=== PATIENT | female | born 1950 ===

== ENCOUNTER 2016-10-14 11:04 | Observation (INO) | payer OTHER ==
--- NOTE | 2016-10-14 12:37 | C.PDOC ---
History Of Present Illness CP SINCE TODAY. L SIDED LOCALIZED. DENIES OTHER ASSOC SX EXAM NEG [id number] NEG NUCLEAR STRESS AND ECHO Chief Complaint (Nursing): Chest Pain History Per: Patient History/Exam Limitations: no limitations Onset/Duration Of Symptoms: Hrs Current Symptoms Are (Timing): Still Present Quality: "Pain" Associated Symptoms: denies: Dyspnea, Diaphoresis Exacerbating Factors: None Recent travel outside of the [place]: No Past Medical History Reviewed: Historical Data, Nursing Documentation, Vital Signs Vital Signs: Last Vital Signs Temp 98.3 F 10/14/16 11:14 Pulse 64 10/14/16 13:21 Resp 15 10/14/16 13:21 BP 149/73 10/14/16 13:21 Pulse Ox 99 10/14/16 13:31 - Medical History PMH: Diabetes, Gall Bladder Disease, HTN, Hypercholesterolemia, Hyperthyroidism , Hypothyroidism, Migraine, Osteoporosis (OSTEOPENIA) Surgical History: Cholecystectomy - [facility] Procedures DX ULTRASOUND-HEAD/NECK (11/27/12) PERCUTAN NEEDLE BX OF THYROID GLAND (11/27/12) Family History: States: Unknown Family Hx - Social History Hx Tobacco Use: No Hx Alcohol Use: No Hx Substance Use: No - Immunization History Hx Tetanus Toxoid Vaccination: No Hx Influenza Vaccination: No Hx Pneumococcal Vaccination: No Review Of Systems Except As Marked, All Systems Reviewed And Found Negative. Constitutional: Negative for: Fever, Chills Cardiovascular: Positive for: Chest Pain. Negative for: Palpitations Respiratory: Negative for: Cough, Shortness of Breath, Wheezing Gastrointestinal: Negative for: Nausea, Vomiting, Abdominal Pain Skin: Negative for: Rash Neurological: Negative for: Headache, Dizziness Physical Exam - Physical Exam Appears: Non-toxic, No Acute Distress Skin: Normal Color, Warm, Dry Head: Atraumatic, Normacephalic Oral Mucosa: Moist Chest: Symmetrical Cardiovascular: Rhythm Regular Respiratory: Normal Breath Sounds, No Rales, No Rhonchi, No Wheezing Gastrointestinal/Abdominal: Soft, No Tenderness, No Guarding, No Rebound Back: Normal Inspection Extremity: Normal ROM, Capillary Refill (< 2 sec.) Neurological/Psych: Oriented x3, Normal Speech, Normal Cognition ED Course And Treatment - Laboratory Results Result Diagrams: 10/14/16 13:35 10/14/16 13:35 ECG: Interpreted By Me ECG Rhythm: Sinus Rhythm ECG Interpretation: Normal Rate From EC O2 Sat by Pulse Oximetry: 99 (RA) Pulse Ox Interpretation: Normal - Radiology CXR: Interpreted by Me CXR Interpretation: Yes: No Acute Disease Progress - Re-Evaluation Re-evaluation Note: 10/14/16 13:31 PT REFUSING NITROPASTE 10/14/16 14:44 D/W DR CLEANING WILL ADMIT - Data Reviewed Data Reviewed: Lab, Diagnostic imaging, EKG, Old records Disposition Counseled Patient/Family Regarding: Studies Performed, Diagnosis - Disposition Disposition: HOSPITALIZED Disposition Time: 14:45 Condition: STABLE Forms: [employer] [place] ([place]) - POA Present On Arrival: None - Clinical Impression Clinical Impression: Chest pain - Scribe Statement The provider has reviewed the documentation as recorded by the Scribe SM All medical record entries made by the Scribe were at my direction and personally dictated by me. I have reviewed the chart and agree that the record accurately reflects my personal performance of the history, physical exam, medical decision making, and the department course for this patient. I have also personally directed, reviewed, and agree with the discharge instructions and disposition. Decision To Admit - Pt Status Changed To: Hospital Disposition Of: Observation - . Bed Request Type: Telemetry Admitting Physician: Ernie Cleaning Patient Diagnosis: Chest pain
[2016-10-14] MEDS ORDERED: Nitroglycerin 2% Ointment Foilpak UD TOP STA (12:38)
[2016-10-14] MEDS ORDERED: Aspirin 325 mg EC Tablets PO STA (12:38)
[2016-10-14] MEDS ORDERED: Aspirin 325 mg EC Tablets PO ONE (13:10)
[2016-10-14] MEDS ORDERED: Nitroglycerin 2% Ointment Foilpak UD TOP ONE (13:11)
--- NOTE | 2016-10-14 13:25 | RAD ---
HISTORY: chest pain COMPARISON: No prior. TECHNIQUE: Chest PA and lateral FINDINGS: LUNGS: No acute consolidation. The interstitial markings are slightly increased and coarsened with a few scattered peribronchial cuffing changes. Rule out sequela of reactive/inflammatory airway disease or viral illness. PLEURA: No significant pleural effusion identified. No pneumothorax apparent. CARDIOVASCULAR: Normal. OSSEOUS STRUCTURES: Minor multilevel degenerative spondylosis of the thoracic spine with very subtle dextroscoliosis centered at the thoracolumbar junction. . Minor degenerative changes both acromioclavicular joints. VISUALIZED UPPER ABDOMEN: Metallic clips right upper quadrant gliotic consistent prior cholecystectomy. OTHER FINDINGS: None. IMPRESSION: No acute consolidation. The interstitial markings are slightly increased and coarsened with a few scattered peribronchial cuffing changes. Rule out sequela of reactive/inflammatory airway disease or viral illness.
[2016-10-14 13:47] LABS: BASO # 0.1 K/uL (0.0-0.2); BASO % 0.9 % (0.0-2.0); EOS # 0.2 K/uL (0.0-0.7); EOS % 2.4 % (0.0-4.0); HEMATOCRIT 41.1 % (34.0-47.0); LYMPH % 37.1 % (20.0-40.0); MEAN CELL VOLUME 90.5 fL (81.0-99.0); MEAN CORPUSCULAR HEMOGLOBIN 30.2 pg (27.0-31.0); MEAN CORPUSCULAR HGB CONC 33.4 g/dL (33.0-37.0); MEAN PLATELET VOLUME 7.9 fL (7.2-11.7); MONO # 0.6 K/uL (0.0-0.8); MONO % 7.9 % (0.0-10.0); NRBC % 0.1 % (0.0-2.0)
[2016-10-14 13:51] LABS: CHLORIDE 102 mmol/L (98-107); POTASSIUM 4.4 mmol/L (3.6-5.2); SODIUM 142 mmol/L (132-148)
[2016-10-14 13:54] LABS: BLOOD UREA NITROGEN 8 mg/dL (7-17); CARBON DIOXIDE 26 mmol/L (22-30); GFR AFRICAN-AMERICAN > 60
[2016-10-14 13:55] LABS: CALCIUM 10.1 mg/dl (8.6-10.4); GLUCOSE,RANDOM 161 mg/dL (65-105)
--- NOTE | 2016-10-14 18:24 | CP.PCM.HP ---
<Royal Platt - Last Filed: 10/14/16 18:50> History of Present Illness - History of Present Illness History of Present Illness: PGY-[address] Lopez HPI: Patient is a 66 y/o female with a PMH of Chronic sinusitis, DM, CVA, Hyperthyroidism and stable angina comes to the ED with a CC of Chest pain for 2 day duration. The pain started last night between the hours of 4pm and 7pm. The pain then ceased but returned this am. Nothing makes the pain better. Walking makes the pain worse. She describes the pain as pressure/a weight on her chest. It radiates to her back. She has had prior episodes of this kind of chest pain and admits to having a cardiac cath done without knowledge of previous stents but does have results of a normal stress test done 1 year ago. She denies fever , chills, nausea, vomiting, diarrhea, constipation, cough, diaphoresis, hemoptysis, visual changes, speech changes,. confusion, PHELAN, abdominal apin, leg pain, rash, changes in urinary habits, blood in urine. she admits to SOB on exertion and minimal SOB at rest, weakness, dizziness. Denies sick contacts or recent travel. PMH: Chronic sinusitis, DM, CVA (residual R. sided facial droop), Hyperthyroidism and stable angina PSH: Lap to open celia, tubal ligation FH: mom is healthy, dad from heart disease, 2 brothers with DM SH: no job, , lives with her , denies smoking, drinking or illegal drug use Meds: ASA, metformin, gliperide, methimazole, meclizine, eye drops. Allergies: none ROS: * Const: denies WL * HEENT: dry eyes, sinusitis, wears glasses * Lungs: "breathing problems" * Heart: Echo 14 years ago, "normal" cath 3 years ago, Normal stress test 1 year ago * GI: stomach churns when she eats * : none * Breast: none * MSK: no back pain, ambulates independently * Neuro: CVA 12 years ago, no seizures * Endo: hyperthyroid, DM * Psych: denies previous hospitlizations * Heme: denies easy bruising, hx of 3 unit transfusion during open celia, denies blood clots * Onc: no history of cancer Present on Admission - Present on Admission Any Indicators Present on Admission: No History of DVT/PE: No History of Uncontrolled Diabetes: No Urinary Catheter: No Decubitus Ulcer Present: No History Surgical Site Infection Following: None Review of Systems - Constitutional Constitutional: As Per HPI - EENT Eyes: As Per HPI Ears: As Per HPI Nose/Mouth/Throat: As Per HPI - Breasts Breasts: As Per HPI - Cardiovascular Cardiovascular: As Per HPI - Respiratory Respiratory: As Per HPI - Gastrointestinal Gastrointestinal: As Per HPI - Genitourinary Genitourinary: As Per HPI - Reproductive: Female Reproductive:Female: As Per HPI - Menstruation Menstruation: As Per HPI - Musculoskeletal Musculoskeletal: As Per HPI - Integumentary Integumentary: As Per HPI - Neurological Neurological: As Per HPI - Psychiatric Psychiatric: As Per HPI - Endocrine Endocrine: As Per HPI - Hematologic/Lymphatic Hematologic: As Per HPI Past Patient History - Infectious Disease Hx of Infectious Diseases: None - Past Medical History & Family History Past Medical History?: Yes - Past Social History Smoking Status: Never Smoked - CARDIAC Hx Hypercholesterolemia: Yes Hx Hypertension: Yes - NEUROLOGICAL Hx Migraine: Yes - HEENT Hx HEENT Problems: Yes Other/Comment: PTYRGIUM LEFT EYE; SEASONAL ALLERGIES. - ENDOCRINE/METABOLIC Hx Hyperthyroidism: Yes Hx Hypothyroidism: Yes - HEMATOLOGICAL/ONCOLOGICAL Hx Blood Disorders: Yes Other/Comment: VITAMIN D DEFICIENCY - MUSCULOSKELETAL/RHEUMATOLOGICAL Hx Osteoporosis: Yes (OSTEOPENIA) - GASTROINTESTINAL Hx Gall Bladder Disease: Yes - PSYCHIATRIC Hx Substance Use: No - SURGICAL HISTORY Hx Cholecystectomy: Yes - ANESTHESIA Hx Anesthesia: Yes Hx Anesthesia Reactions: No Hx Malignant Hyperthermia: No Meds Allergies/Adverse Reactions: Allergies Allergy/AdvReac Type Severity Reaction Status Date / Time No Known Allergies Allergy Verified 10/14/16 11:18 Physical Exam - Constitutional Appears: Well, Non-toxic - Head Exam Head Exam: ATRAUMATIC, NORMAL INSPECTION, NORMOCEPHALIC - Eye Exam Eye Exam: EOMI - ENT Exam ENT Exam: Mucous Membranes Moist Additional comments: r. sided facial droop - Respiratory Exam Respiratory Exam: Clear to Auscultation Bilateral, NORMAL BREATHING PATTERN. absent: Rales, Rhonchi, Wheezes, Stridor - Cardiovascular Exam Cardiovascular Exam: REGULAR RHYTHM, RRR. absent: Tachycardia - GI/Abdominal Exam GI & Abdominal Exam: Normal Bowel Sounds, Soft. absent: Distended, Firm, Tenderness - Extremities Exam Extremities exam: Positive for: normal capillary refill, pedal pulses present. Negative for: calf tenderness, joint swelling, pedal edema, tenderness - Back Exam Back exam: paraspinal tenderness - Neurological Exam Neurological exam: Alert, CN II-XII Intact, Oriented x3 - Expanded Neurological Exam Expanded Sensory exam: Lower Extremity Light Touch: Normal, Upper Extremity Light Touch: Normal Neuro motor strength exam: Left Upper Extremity: 5, Right Upper Extremity: 5, Left Lower Extremity: 5, Right Lower Extremity: 5 - Psychiatric Exam Psychiatric exam: Normal Affect, Normal Mood - Skin Skin Exam: Dry, Intact, Normal Color, Warm Results - Vital Signs Recent Vital Signs: Last Vital Signs Temp 98.0 F 10/14/16 16:04 Pulse 72 10/14/16 16:04 Resp 17 10/14/16 16:04 BP 148/77 10/14/16 16:04 Pulse Ox 98 10/14/16 16:04 - Labs Result Diagrams: 10/14/16 13:35 10/14/16 13:35 Assessment & Plan - Assessment and Plan (Free Text) Assessment: Chest Pain * Stable angina Vs Costochondritis * BAL/EKG x2 - F/U * Cards ([facility]) - F/U reccs * ASA 81mg PO QD * Zestril 2.5mg PO QD * Metoprolol 25mg PO Q6 * Crestor 10mg PO HS Hyperthyroidism * Methimazole 5mg PO BID * TSH - F/U DM * Glimepiride 2mg PO BID * Hgb A1c - F/U * Accuchecks PPX * Pepcid 20mg PO BID * Heparin 5000 SC Q12 * Ambulate Decision To Admit - Pt Status Changed To: Hospital Disposition Of: Observation - . Bed Request Type: Telemetry <Matt Lopez - Last Filed: 11/14/16 15:42> Results - Vital Signs Recent Vital Signs: Last Vital Signs Temp 98.1 F 10/15/16 08:30 Pulse 70 10/15/16 10:30 Resp 20 10/15/16 08:30 BP 119/72 10/15/16 12:39 Pulse Ox 95 10/15/16 08:30 - Labs Result Diagrams: 10/15/16 07:46 10/15/16 07:46 Attending/Attestation - Attestation I have personally seen and examined this patient.: Yes I have fully participated in the care of the patient.: Yes I have reviewed all pertinent clinical information: Yes Notes (Text): Chest Pain Stable angina Possible Costochondritis Hyperthyroidism DM
--- NOTE | 2016-10-14 19:32 | CP.PCM.CON ---
History of Present Illness - History of Present Illness History of Present Illness: Consultation for evaluation of chest pain HPI : 66-year-old female with past medical history significant for diabetes mellitus hyperthyroidism chronic sinusitis recurrent chest wall pain for which she had had multiple hospitalizations over the course of last few years patient had undergone serial nuclear stress test back in 2015 and 2016 which showed no evidence of ischemia he describes the pain as sharp stabbing along the left side radiating to her left shoulder blade. Patient had a cardiac catheterization a few years ago. Denies having any shortness of breath palpitations dizziness syncope or presyncope. As stated above significant past medical history significant for chronic sinusitis diabetes mellitus CVA with mild right facial droop hyperthyroidism Past surgical history significant for tubal ligation open cholecystectomy. Family history significant for dad dying from heart attack 2 brothers diabetic. Social history lives with her asked me she was smoking alcohol or illicit drug use. Medications: Patient is on aspirin Metformin glipizide methimazole meclizine and eyedrops. Review of Systems - Review of Systems All systems: reviewed and no additional remarkable complaints except - Constitutional Constitutional: As Per HPI, Fatigue, Malaise. absent: Anorexia, Chills, Daytime Sleepiness, Excessive Sweating, Fever, Frequent Falls, Headache, Increased Appetite, Lethargy, Night Sweats, Snoring, Sleep Apnea, Weight Gain, Weight Loss, Weakness, Other - EENT Eyes: As Per HPI. absent: Blind Spots, Blurred Vision, Change in Vision, Decreased Night Vision, Diplopia, Discharge, Dry Eye, Exophthalmos, Floaters, Irritation, Itchy Eyes, Loss of Peripheral Vision, Pain, Photophobia, Requires Corrective Lenses, Sees Flashes, Spots in Vision, Tunnel Vision, Other Visual Disturbances, Loss of Vision, Other Ears: As Per HPI. absent: Decreased Hearing, Ear Discharge, Ear Pain, Tinnitus , Abnormal Hearing, Disequilibrium, Dizziness, Other Nose/Mouth/Throat: As Per HPI, Nasal Congestion, Nose Pain. absent: Epistaxis, Nasal Discharge, Nasal Obstruction, Nasal Trauma, Post Nasal Drip, Sinus Pain, Sinus Pressure, Bleeding Gums, Change in Voice, Dental Pain, Dry Mouth, Dysphagia, Halitosis, Hoarsness, Lip Swelling, Mouth Lesions, Mouth Pain, Odynophagia, Sore Throat, Throat Swelling, Tongue Swelling, Facial Pain, Neck Pain, Neck Mass, Other - Breasts Breasts: As Per HPI - Cardiovascular Cardiovascular: As Per HPI, Chest Pain, Dyspnea. absent: Acrocyanosis, Chest Pain at Rest, Chest Pain with Activity, Claudication, Diaphoresis, Dyspnea on Exertion, Edema, Irregular Heart Rhythm, Pain Radiating to Arm/Neck/Jaw, Leg Edema, Leg Ulcers, Lightheadedness, Orthopnea, Palpitations, Paroxysmal Nocturnal Dyspnea, Pedal Edema, Radiating Pain, Rapid Heart Rate, Slow Heart Rate, Syncope, Other - Respiratory Respiratory: As Per HPI. absent: Cough, Dyspnea, Hemoptysis, Dyspnea on Exertion, Wheezing, Snoring, Stridor, Pain on Inspiration, Chest Congestion, Excessive Mucous Production, Change in Mucous Color, Pain with Coughing, Other - Gastrointestinal Gastrointestinal: As Per HPI. absent: Abdominal Pain, Belching, Bloating, Change in Bowel Habits, Change in Stool Character, Coffee Ground Emesis, Constipation, Cramping, Diarrhea, Dyspepsia, Dysphagia, Early Satiety, Excessive Flatus, Fecal Incontinence, Heartburn, Hematemesis, Hematochezia, Loose Stools, Melena, Nausea, Odynophagia, Temesmus, Vomiting, Other - Genitourinary Genitourinary: As Per HPI - Musculoskeletal Musculoskeletal: As Per HPI - Integumentary Integumentary: As Per HPI. absent: Acne, Alopecia, Bleeding Lesions, Change in Hair, Change in Nails, Change in Pigmentation, Changing Lesions, Dry Skin, Erythema, Furuncle, Hirsutism, Lesions, New Lesions, Non-Healing Lesions, Photosensitivity, Pruritus, Rash, Skin Pain, Skin Ulcer, Sores, Striae, Swelling , Unusual Bruising, Wounds, Jaundice, Other - Neurological Neurological: As Per HPI. absent: Abnormal Gait, Abnormal Hearing, Abnormal Movements, Abnormal Speech, Behavioral Changes, Burning Sensations, Confusion, Convulsions, Disequilibrium, Dizziness, Numbness, Focal Weakness, Frequent Falls , Headaches, Lack of Coordination, Loss of Vision, Memory Loss, Paresthesias, Radicular Pain, Restless Legs, Sensory Deficit, Syncope, Tingling, Tremor, Vertigo, Weakness, Other Visual Disturbances, Other - Psychiatric Psychiatric: As Per HPI. absent: Abnormal Sleep Pattern, Anhedonia, Anxiety, Auditory Hallucinations, Behavioral Changes, Change in Appetite, Change in Libido, Confusion, Depression, Difficulty Concentrating, Hallucinations, Homicidal Ideation, Hopelessness, Irritability, Memory Loss, Mood Swings, Panic Attacks, Paranoia, Suicidal Ideation, Visual Hallucinations, Tactile Hallucinations, Other - Endocrine Endocrine: As Per HPI, Cold Intolorance. absent: Change in Body Appearance, Change in Libido, Deepening of Voice, Excessive Sweating, Fatigue, Flushing, Heat Intolorance, Increase in Ring/Shoe/Hat Size, Palpitations, Polydipsia, Polyphagia, Polyuria, Other - Hematologic/Lymphatic Hematologic: As Per HPI. absent: Easy Bleeding, Easy Bruising, Lymphadenopathy , Other Past Patient History - Infectious Disease Hx of Infectious Diseases: None - Past Medical History & Family History Past Medical History?: Yes - Past Social History Smoking Status: Never Smoked - CARDIAC Hx Hypercholesterolemia: Yes Hx Hypertension: Yes - NEUROLOGICAL Hx Migraine: Yes - HEENT Hx HEENT Problems: Yes Other/Comment: PTYRGIUM LEFT EYE; SEASONAL ALLERGIES. - ENDOCRINE/METABOLIC Hx Hyperthyroidism: Yes Hx Hypothyroidism: Yes - HEMATOLOGICAL/ONCOLOGICAL Hx Blood Disorders: Yes Other/Comment: VITAMIN D DEFICIENCY - MUSCULOSKELETAL/RHEUMATOLOGICAL Hx Osteoporosis: Yes (OSTEOPENIA) - GASTROINTESTINAL Hx Gall Bladder Disease: Yes - PSYCHIATRIC Hx Substance Use: No - SURGICAL HISTORY Hx Cholecystectomy: Yes - ANESTHESIA Hx Anesthesia: Yes Hx Anesthesia Reactions: No Hx Malignant Hyperthermia: No Meds Allergies/Adverse Reactions: Allergies Allergy/AdvReac Type Severity Reaction Status Date / Time No Known Allergies Allergy Verified 10/14/16 11:18 - Medications Medications: Current Medications Acetaminophen (Tylenol 325mg Tab) 650 mg PO Q6 PRN PRN Reason: Fever >100.4 F Aspirin (Aspirin Chewable) 81 mg PO DAILY [facility] Famotidine (Pepcid) 20 mg PO BID [facility] Last Admin: 10/14/16 18:57 Dose: 20 mg Glimepiride (Amaryl) 2 mg PO BID [facility] Heparin Sodium (Porcine) (Heparin) 5,000 units SC Q12 [facility] Lisinopril (Zestril) 2.5 mg PO DAILY [facility] Last Admin: 10/14/16 19:01 Dose: 2.5 mg Methimazole (Tapazole) 5 mg PO BID [facility] Metoprolol Tartrate (Lopressor) 25 mg PO Q6 [facility] Last Admin: 10/14/16 18:57 Dose: 25 mg Ondansetron HCl (Zofran Inj) 4 mg IVP Q6 PRN PRN Reason: Nausea/Vomiting Rosuvastatin Calcium (Crestor) 10 mg PO HS [facility] Physical Exam - Constitutional Appears: Well - Head Exam Head Exam: ATRAUMATIC, NORMAL INSPECTION, NORMOCEPHALIC - Eye Exam Eye Exam: EOMI, Normal appearance, PERRL Pupil Exam: NORMAL ACCOMODATION, PERRL - ENT Exam ENT Exam: Mucous Membranes Moist, Normal Exam - Neck Exam Neck exam: Positive for: Normal Inspection - Respiratory Exam Respiratory Exam: Clear to Auscultation Bilateral, NORMAL BREATHING PATTERN - Cardiovascular Exam Cardiovascular Exam: REGULAR RHYTHM, RRR, +S1, +S2, Systolic Murmur - GI/Abdominal Exam GI & Abdominal Exam: Normal Bowel Sounds, Soft. absent: Tenderness - Extremities Exam Extremities exam: Positive for: normal inspection - Back Exam Back exam: NORMAL INSPECTION - Neurological Exam Neurological exam: Alert, CN II-XII Intact, Oriented x3, Reflexes Normal - Psychiatric Exam Psychiatric exam: Normal Affect, Normal Mood - Skin Skin Exam: Dry, Intact, Normal Color, Warm Results - Vital Signs Recent Vital Signs: Last Vital Signs Temp 99.0 F 10/14/16 18:42 Pulse 75 10/14/16 18:42 Resp 15 10/14/16 18:42 BP 136/69 10/14/16 18:57 Pulse Ox 97 10/14/16 18:42 - Labs Result Diagrams: 10/14/16 13:35 10/14/16 13:35 - EKG Data EKG Interpreted by: Myself EKG shows normal: Sinus rhythm, [place], Intervals, QRS complexes, ST-T waves Rate: Normal Assessment & Plan (1) Chest pain Assessment and Plan: Etiology of chest pain most likely secondary to costochondritis chest wall tenderness reproducible on palpation along the left costochondral junction. Check ESR CRP. Rule out with serial enzymes. If ESR and CRP elevated may consider treating her with colchicine. Once ACS rule out she can be discharged home with no further cardiac workup needed as she had previously undergone serial nuclear stress test with showing no evidence of ischemia. Status: Acute (2) Costochondritis Assessment and Plan: etiology of chest pain check ESR / cRP NSAIDS +/- colchicine Status: Acute (3) Diabetes mellitus Assessment and Plan: per primary team Status: Chronic (4) Hyperthyroidism Assessment and Plan: per primary team Status: Chronic
[2016-10-15 07:57] LABS: BASO # 0.2 K/uL (0.0-0.2); BASO % 2.3 % (0.0-2.0); EOS # 0.2 K/uL (0.0-0.7); EOS % 2.9 % (0.0-4.0); HEMATOCRIT 40.5 % (34.0-47.0); LYMPH # 2.6 K/uL (1.0-4.3); LYMPH % 38.5 % (20.0-40.0); MEAN CELL VOLUME 90.4 fL (81.0-99.0); MEAN CORPUSCULAR HEMOGLOBIN 30.4 pg (27.0-31.0); MEAN CORPUSCULAR HGB CONC 33.6 g/dL (33.0-37.0); MEAN PLATELET VOLUME 8.1 fL (7.2-11.7); MONO # 0.5 K/uL (0.0-0.8); MONO % 7.2 % (0.0-10.0); NRBC % 0.1 % (0.0-2.0); RED CELL DISTRIBUTION WIDTH 14.2 % (11.5-14.5); WHITE BLOOD COUNT 6.7 K/uL (4.8-10.8)
[2016-10-15 08:11] LABS: CHLORIDE 102 mmol/L (98-107); POTASSIUM 4.1 mmol/L (3.6-5.2); SODIUM 138 mmol/L (132-148)
[2016-10-15 08:13] LABS: AST/SGOT 29 U/L (14-36); BILIRUBIN,TOTAL 0.7 mg/dL (0.2-1.3); CARBON DIOXIDE 25 mmol/L (22-30); CHOLESTEROL 255 mg/dL (0-199); GFR AFRICAN-AMERICAN > 60
[2016-10-15 08:14] LABS: ALB/GLOB RATIO 1.2 (1.0-2.1); ALKALINE PHOSPHATASE 86 U/L (38-126); ALT/SGPT 46 U/L (9-52); BLOOD UREA NITROGEN 9 mg/dL (7-17); CALCIUM 9.4 mg/dl (8.6-10.4); GLUCOSE,RANDOM 160 mg/dL (65-105); TOTAL PROTEIN 7.1 g/dL (6.3-8.3)
[2016-10-15 08:45] LABS: THYROID STIMULATING HORMONE 2.95 mIU/L (0.46-4.68)
[2016-10-15 09:52] VITALS: RESP 20; TEMP 98.1; O2SAT 95
[2016-10-15] MEDS ORDERED: methIMAzole 5 MG TAB PO SCH (10:00)
--- NOTE | 2016-10-15 11:43 | CP.PCM.PN ---
Subjective - Date & Time of Evaluation Date of Evaluation: 10/15/16 Time of Evaluation: 11:40 - Subjective Subjective: feels chest pain is less intense reproducible on palpation of chest wall TnI x 3 -ve Objective - Vital Signs/Intake and Output Vital Signs (last 24 hours): Temp Pulse Resp BP Pulse Ox 98.1 F 68 20 126/72 95 10/15/16 08:30 10/15/16 08:30 10/15/16 08:30 10/15/16 08:30 10/15/16 08:30 - Medications Medications: Current Medications Acetaminophen (Tylenol 325mg Tab) 650 mg PO Q6 PRN PRN Reason: Fever >100.4 F Aspirin (Aspirin Chewable) 81 mg PO DAILY [facility] Last Admin: 10/15/16 10:31 Dose: 81 mg Famotidine (Pepcid) 20 mg PO BID [facility] Last Admin: 10/15/16 10:32 Dose: 20 mg Glimepiride (Amaryl) 2 mg PO BID [facility] Last Admin: 10/15/16 10:32 Dose: 2 mg Heparin Sodium (Porcine) (Heparin) 5,000 units SC Q12 [facility] Last Admin: 10/15/16 10:32 Dose: Not Given Lisinopril (Zestril) 2.5 mg PO DAILY [facility] Last Admin: 10/15/16 10:32 Dose: 2.5 mg Methimazole (Tapazole) 5 mg PO BID [facility] Last Admin: 10/15/16 10:31 Dose: 5 mg Metoprolol Tartrate (Lopressor) 25 mg PO Q6 [facility] Last Admin: 10/14/16 18:57 Dose: 25 mg Ondansetron HCl (Zofran Inj) 4 mg IVP Q6 PRN PRN Reason: Nausea/Vomiting Pneumococcal Polyvalent Vaccine (Pneumovax 23 Vaccine) 0.5 ml IM .ONCE ONE Stop: 10/16/16 10:01 Rosuvastatin Calcium (Crestor) 10 mg PO HS [facility] Last Admin: 10/14/16 21:53 Dose: 10 mg - Labs Labs: 10/15/16 07:46 10/15/16 07:46 PT 11.3 SECONDS (9.7-12.2) 10/15/16 07:46 INR 1.0 10/15/16 07:46 APTT 30 SECONDS (21-34) 10/15/16 07:46 - Constitutional Appears: Well - Head Exam Head Exam: ATRAUMATIC, NORMAL INSPECTION, NORMOCEPHALIC - Eye Exam Eye Exam: EOMI, Normal appearance, PERRL Pupil Exam: NORMAL ACCOMODATION, PERRL - ENT Exam ENT Exam: Mucous Membranes Moist, Normal Exam - Neck Exam Neck Exam: Full ROM, Normal Inspection. absent: Lymphadenopathy - Respiratory Exam Respiratory Exam: Clear to Ausculation Bilateral, NORMAL BREATHING PATTERN - Cardiovascular Exam Cardiovascular Exam: REGULAR RHYTHM, +S1, +S2, Murmur Additional comments: left costochondral pain chest pain - GI/Abdominal Exam GI & Abdominal Exam: Soft, Normal Bowel Sounds. absent: Tenderness - Extremities Exam Extremities Exam: Full ROM, Normal Capillary Refill, Normal Inspection. absent : Joint Swelling, Pedal Edema - Back Exam Back Exam: NORMAL INSPECTION - Neurological Exam Neurological Exam: Alert, Awake, CN II-XII Intact, Normal Gait, Oriented x3 - Psychiatric Exam Psychiatric exam: Normal Affect, Normal Mood - Skin Skin Exam: Dry, Intact, Normal Color, Warm Assessment and Plan (1) Chest pain Assessment & Plan: 2' to costochondritis ACS ruled out stable to dc home on NSAIDs Status: Acute (2) Costochondritis Assessment & Plan: NSAIDs consider colchicine if recurs Status: Acute (3) Diabetes mellitus Assessment & Plan: per primary team Status: Chronic (4) Hyperthyroidism Assessment & Plan: per primary team Status: Chronic
[2016-10-15 12:40] VITALS: BP 119/72
--- NOTE | 2016-10-15 13:38 | CP.PCM.DIS ---
<Royal Platt - Last Filed: 10/15/16 20:29> Provider - Provider Date of Admission: 10/14/16 14:45 Attending physician: Matt Lopez MD Primary care physician: Clinic Consults: Noemi Ghosh Time Spent in preparation of Discharge (in minutes): 60 Hospital Course - Lab Results Lab Results: Most Recent Lab Values WBC 6.7 K/uL (4.8-10.8) 10/15/16 07:46 RBC 4.48 Mil/uL (3.80-5.20) 10/15/16 07:46 Hgb 13.6 g/dL (11.0-16.0) 10/15/16 07:46 Hct 40.5 % (34.0-47.0) 10/15/16 07:46 MCV 90.4 fL (81.0-99.0) 10/15/16 07:46 MCH 30.4 pg (27.0-31.0) 10/15/16 07:46 MCHC 33.6 g/dL (33.0-37.0) 10/15/16 07:46 RDW 14.2 % (11.5-14.5) 10/15/16 07:46 Plt Count 248 K/uL (130-400) 10/15/16 07:46 MPV 8.1 fL (7.2-11.7) 10/15/16 07:46 Neut % (Auto) 49.1 % (50.0-75.0) L 10/15/16 07:46 Lymph % (Auto) 38.5 % (20.0-40.0) 10/15/16 07:46 Cobb % (Auto) 7.2 % (0.0-10.0) 10/15/16 07:46 Eos % (Auto) 2.9 % (0.0-4.0) 10/15/16 07:46 Baso % (Auto) 2.3 % (0.0-2.0) H 10/15/16 07:46 Neut # 3.3 K/uL (1.8-7.0) 10/15/16 07:46 Lymph # 2.6 K/uL (1.0-4.3) 10/15/16 07:46 Cobb # 0.5 K/uL (0.0-0.8) 10/15/16 07:46 Eos # 0.2 K/uL (0.0-0.7) 10/15/16 07:46 Baso # 0.2 K/uL (0.0-0.2) 10/15/16 07:46 PT 11.3 SECONDS (9.7-12.2) 10/15/16 07:46 INR 1.0 10/15/16 07:46 APTT 30 SECONDS (21-34) 10/15/16 07:46 Sodium 138 mmol/L (132-148) 10/15/16 07:46 Potassium 4.1 mmol/L (3.6-5.2) 10/15/16 07:46 Chloride 102 mmol/L (98-107) 10/15/16 07:46 Carbon Dioxide 25 mmol/L (22-30) 10/15/16 07:46 Anion Gap 16 (10-20) 10/15/16 07:46 BUN 9 mg/dL (7-17) 10/15/16 07:46 Creatinine 0.6 MG/DL (0.7-1.2) L 10/15/16 07:46 Est GFR ( Amer) > 60 10/15/16 07:46 Est GFR (Non-Af Amer) > 60 10/15/16 07:46 POC Glucose (mg/dL) 239 mg/dL (65-110) H 10/15/16 11:58 Random Glucose 160 mg/dL (65-105) H 10/15/16 07:46 Hemoglobin A1c 9.0 % (4.2-6.5) H 10/15/16 07:46 Calcium 9.4 mg/dl (8.6-10.4) 10/15/16 07:46 Total Bilirubin 0.7 mg/dL (0.2-1.3) 10/15/16 07:46 AST 29 U/L (14-36) 10/15/16 07:46 ALT 46 U/L (9-52) 10/15/16 07:46 Alkaline Phosphatase 86 U/L (38-126) 10/15/16 07:46 Total Creatine Kinase 54 U/L (30-135) 10/15/16 07:46 CK-MB (Mass) 1.12 ng/mL (0.0-3.38) 10/15/16 07:46 Troponin I < 0.0120 ng/mL (0.00-0.120) 10/14/16 13:35 Troponin I, Quant < 0.0120 ng/mL (0.00-0.120) 10/15/16 07:46 Total Protein 7.1 g/dL (6.3-8.3) 10/15/16 07:46 Albumin 3.9 g/dL (3.5-5.0) 10/15/16 07:46 Globulin 3.3 gm/dL (2.2-3.9) 10/15/16 07:46 Albumin/Globulin Ratio 1.2 (1.0-2.1) 10/15/16 07:46 Triglycerides 371 mg/dL (0-149) H D 10/15/16 07:46 Cholesterol 255 mg/dL (0-199) H 10/15/16 07:46 LDL Cholesterol Direct 124 mg/dL (0-129) 10/15/16 07:46 HDL Cholesterol 40 mg/dL (30-70) 10/15/16 07:46 TSH 3rd Generation 2.95 mIU/L (0.46-4.68) 10/15/16 07:46 - Hospital Course Hospital Course: Patient seen by Dr. Platt in the ER on 10/14/16, for chest pain, Dr. Choe consulted. ECG requested and was found to be normal. Patient received chest x-ray while in the ER which showed no areas of consolidation. Only areas of slightly increased and coarsed interstial markings with few scattered preibronchial cuffing were seen. Patient admitted 10/14/16. Patient seen at bedside by Dr. Cheo on 10/14/16, who determined the chest pain to be secondary to chostochondritis. Chest wall tenderness was reproducible on palpation of the costochondral junctions on the left side. No furthur cardiac workup needed after ACS ruled out. Patient given medicine to control pain. - Date & Time of H&P Date of H&P: 10/14/16 Time of H&P: 18:13 Discharge Exam - Head Exam Head Exam: ATRAUMATIC, NORMAL INSPECTION, NORMOCEPHALIC - Eye Exam Eye Exam: EOMI, Normal appearance - ENT Exam ENT Exam: Mucous Membranes Moist - Respiratory Exam Respiratory Exam: NORMAL BREATHING PATTERN, UNREMARKABLE. absent: Rales, Wheezes, Stridor - Cardiovascular Exam Cardiovascular Exam: REGULAR RHYTHM, RRR - GI/Abdominal Exam GI & Abdominal Exam: Soft, Unremarkable. absent: Distended, Tenderness - Neurological Exam Neurological exam: Alert, Oriented x3 - Psychiatric Exam Psychiatric exam: Normal Affect, Normal Mood - Skin Skin Exam: Dry, Intact, Normal Color, Warm Discharge Plan - Discharge Medications Prescriptions: Glimepiride [amaRYL] 2 mg PO BID #60 tab Lisinopril [Zestril] 2.5 mg PO DAILY #30 tab methIMAzole [Tapazole] 5 mg PO BID 60 Days Metoprolol Tartrate [Lopressor] 25 mg PO BID #60 tab - Follow Up Plan Condition: STABLE Disposition: HOME/ ROUTINE Instructions: Metoprolol (By mouth), Lisinopril (By mouth), Pneumococcal Polyvalent Vaccine (By injection), Methimazole (By mouth), Glimepiride (By mouth ), Chest Pain (DC), Hib Vaccine (DC) Additional Instructions: Patient is stable and clear for discharge from a Cardiac standpoint. Patient is stable and clear for discharge from a Medical standpoint. She needs to follow up in the Clinic with Dr. Hutton in one week for Follow up and control of her diabetes. Prescriptions will be given to the patient upon d/c. If symptoms return, patient should return to the ER. Patient agrees with the plan. Clinical Quality Measures - Date & Time of Discharge Summary Date of Discharge Summary: 10/15/16 Time of Discharge Summary: 20:32 <Matt Lopez - Last Filed: 11/14/16 15:43> Provider - Provider Date of Admission: 10/14/16 14:45 Attending physician: Matt Lopez MD Hospital Course - Lab Results Lab Results: Most Recent Lab Values WBC 6.7 K/uL (4.8-10.8) 10/15/16 07:46 RBC 4.48 Mil/uL (3.80-5.20) 10/15/16 07:46 Hgb 13.6 g/dL (11.0-16.0) 10/15/16 07:46 Hct 40.5 % (34.0-47.0) 10/15/16 07:46 MCV 90.4 fL (81.0-99.0) 10/15/16 07:46 MCH 30.4 pg (27.0-31.0) 10/15/16 07:46 MCHC 33.6 g/dL (33.0-37.0) 10/15/16 07:46 RDW 14.2 % (11.5-14.5) 10/15/16 07:46 Plt Count 248 K/uL (130-400) 10/15/16 07:46 MPV 8.1 fL (7.2-11.7) 10/15/16 07:46 Neut % (Auto) 49.1 % (50.0-75.0) L 10/15/16 07:46 Lymph % (Auto) 38.5 % (20.0-40.0) 10/15/16 07:46 Cobb % (Auto) 7.2 % (0.0-10.0) 10/15/16 07:46 Eos % (Auto) 2.9 % (0.0-4.0) 10/15/16 07:46 Baso % (Auto) 2.3 % (0.0-2.0) H 10/15/16 07:46 Neut # 3.3 K/uL (1.8-7.0) 10/15/16 07:46 Lymph # 2.6 K/uL (1.0-4.3) 10/15/16 07:46 Cobb # 0.5 K/uL (0.0-0.8) 10/15/16 07:46 Eos # 0.2 K/uL (0.0-0.7) 10/15/16 07:46 Baso # 0.2 K/uL (0.0-0.2) 10/15/16 07:46 PT 11.3 SECONDS (9.7-12.2) 10/15/16 07:46 INR 1.0 10/15/16 07:46 APTT 30 SECONDS (21-34) 10/15/16 07:46 Sodium 138 mmol/L (132-148) 10/15/16 07:46 Potassium 4.1 mmol/L (3.6-5.2) 10/15/16 07:46 Chloride 102 mmol/L (98-107) 10/15/16 07:46 Carbon Dioxide 25 mmol/L (22-30) 10/15/16 07:46 Anion Gap 16 (10-20) 10/15/16 07:46 BUN 9 mg/dL (7-17) 10/15/16 07:46 Creatinine 0.6 MG/DL (0.7-1.2) L 10/15/16 07:46 Est GFR ( Amer) > 60 10/15/16 07:46 Est GFR (Non-Af Amer) > 60 10/15/16 07:46 POC Glucose (mg/dL) 239 mg/dL (65-110) H 10/15/16 11:58 Random Glucose 160 mg/dL (65-105) H 10/15/16 07:46 Hemoglobin A1c 9.0 % (4.2-6.5) H 10/15/16 07:46 Calcium 9.4 mg/dl (8.6-10.4) 10/15/16 07:46 Total Bilirubin 0.7 mg/dL (0.2-1.3) 10/15/16 07:46 AST 29 U/L (14-36) 10/15/16 07:46 ALT 46 U/L (9-52) 10/15/16 07:46 Alkaline Phosphatase 86 U/L (38-126) 10/15/16 07:46 Total Creatine Kinase 54 U/L (30-135) 10/15/16 07:46 CK-MB (Mass) 1.12 ng/mL (0.0-3.38) 10/15/16 07:46 Troponin I < 0.0120 ng/mL (0.00-0.120) 10/14/16 13:35 Troponin I, Quant < 0.0120 ng/mL (0.00-0.120) 10/15/16 07:46 Total Protein 7.1 g/dL (6.3-8.3) 10/15/16 07:46 Albumin 3.9 g/dL (3.5-5.0) 10/15/16 07:46 Globulin 3.3 gm/dL (2.2-3.9) 10/15/16 07:46 Albumin/Globulin Ratio 1.2 (1.0-2.1) 10/15/16 07:46 Triglycerides 371 mg/dL (0-149) H D 10/15/16 07:46 Cholesterol 255 mg/dL (0-199) H 10/15/16 07:46 LDL Cholesterol Direct 124 mg/dL (0-129) 10/15/16 07:46 HDL Cholesterol 40 mg/dL (30-70) 10/15/16 07:46 TSH 3rd Generation 2.95 mIU/L (0.46-4.68) 10/15/16 07:46 Attending/Attestation - Attestation I have personally seen and examined this patient.: Yes I have fully participated in the care of the patient.: Yes I have reviewed all pertinent clinical information, including history, physical exam and plan: Yes Notes (Text): Patient seen at bedside by Dr. Choe on 10/14/16, who determined the chest pain to be secondary to chostochondritis. Chest wall tenderness was reproducible on palpation of the costochondral junctions on the left side. No furthur cardiac workup needed after ACS ruled out. Patient given medicine to control pain.
[2016-10-15] MEDS ORDERED: Pneumococcal 23-Valent Vaccine IM ONE (14:30)
[2016-10-15 20:21] VITALS: PULSE 70
[2016-10-16] MEDS ORDERED: Pneumococcal 23-Valent Vaccine IM ONE (10:00)
--- NOTE | 2016-10-18 16:09 | CARD ---
APPROVED REPORT EKG Measurement Heart [id number] MS [id number] [id number] <Conclusion> Normal sinus rhythm Normal ECG
== END 2016-10-15 15:15 | disposition home or self-care (01) ==
LOC: C.ER 11:04 → C.9E 14:45 → C.5T 19:46
PROVIDERS: ADMIT Internal Medicine; ATTEND Internal Medicine
DX: M94.0 Chondrocostal junction syndrome [Tietze] (principal); Z86.73 Personal history of transient ischemic attack (TIA), and cerebral infarction without residual deficits; J32.9 Chronic sinusitis, unspecified; E11.9 Type 2 diabetes mellitus without complications; E05.90 Thyrotoxicosis, unspecified without thyrotoxic crisis or storm; Z83.3 Family history of diabetes mellitus; Z23 Encounter for immunization
CPT/HCPCS: 36415; 71020; 80048; 80053; 80061; 82948; 83036; 84443; 84484; 85025; 85610; 85730; 90732; 99285; G0009; G0378

== ENCOUNTER 2017-10-15 12:02 | Emergency (ER) | payer MEDICARE ==
[2017-10-15 12:28] VITALS: BP 149/77; PULSE 79; RESP 18; TEMP 99.1; O2SAT 99
--- NOTE | 2017-10-15 13:14 | C.PDOC ---
History Of Present Illness 67yo female, comes to ER with complaints of headache, dizziness and anxiety. Patient has had multiple evaluations for such episodes previously which has been negative. She denies any vision changes, weakness, numbness, vomiting and offers no other complaints. Time Seen by Provider: 10/15/17 13:03 Chief Complaint (Nursing): Dizziness/Lightheaded History Per: Patient History/Exam Limitations: no limitations Onset/Duration Of Symptoms: Persistent Current Symptoms Are (Timing): Still Present Past Medical History Reviewed: Historical Data, Nursing Documentation, Vital Signs Vital Signs: Last Vital Signs Temp 99.1 F 10/15/17 12:24 Pulse 79 10/15/17 12:24 Resp 18 10/15/17 12:24 BP 149/77 10/15/17 12:24 Pulse Ox 99 10/15/17 14:28 - Medical History PMH: Diabetes, Gall Bladder Disease (cholecystectomy), HTN, Hypercholesterolemia , Hyperthyroidism, Hypothyroidism, Migraine, Osteoporosis (OSTEOPENIA) Denies: Colonic Polyps, Fractures, Chronic Kidney Disease, TIA Surgical History: Cholecystectomy - [facility] Procedures DX ULTRASOUND-HEAD/NECK (11/27/12) PERCUTAN NEEDLE BX OF THYROID GLAND (11/27/12) Family History: States: Unknown Family Hx - Social History Hx Tobacco Use: No Hx Alcohol Use: No Hx Substance Use: No - Immunization History Hx Tetanus Toxoid Vaccination: No Hx Influenza Vaccination: No Hx Pneumococcal Vaccination: No Review Of Systems Except As Marked, All Systems Reviewed And Found Negative. Eyes: Negative for: Vision Change Gastrointestinal: Negative for: Vomiting Neurological: Positive for: Headache, Dizziness. Negative for: Weakness, Numbness Psych: Positive for: Anxiety Physical Exam - Physical Exam Appears: Non-toxic, No Acute Distress Skin: Normal Color, Warm, Dry Head: Atraumatic, Normacephalic Eye(s): bilateral: Normal Inspection (no nystagmus), PERRL, EOMI Oral Mucosa: Moist Neck: Normal ROM, Supple Chest: Symmetrical Cardiovascular: Rhythm Regular Respiratory: Normal Breath Sounds Extremity: Normal ROM, No Pedal Edema Neurological/Psych: Oriented x3, Normal Speech, Normal Cognition, Normal Motor, Normal Sensation Gait: Steady ED Course And Treatment O2 Sat by Pulse Oximetry: 99 (RA) Pulse Ox Interpretation: Normal Medical Decision Making Medical Decision Making: typical vertigo did not take her meds today-but has @ home. many recent w/u's, all wnl no indication to repeat w/u now. Improved with typical tx Disposition Doctor Will See Patient In The: Office Counseled Patient/Family Regarding: Studies Performed, Diagnosis - Disposition Referrals: [facility] [Outside] [facility] [Outside] [facility] [Outside] [facility] [Outside] Disposition: HOME/ ROUTINE Disposition Time: 13:14 Condition: GOOD Additional Instructions: bhupinder Antivert/Meclizine 25 mg cada 6 horas kendell necessario Tylenol 1000 mg o' Ibuprofeno 600 mg cada 6 horas kendell necessario para dolor de chaim Sigue en la [facility] familiar kendell necessario Prescriptions: Meclizine [Meclizine*] 25 mg PO Q6 PRN #30 tab PRN Reason: vertigo Instructions: Vertigo (a Type of Dizziness) Forms: Nala (Icelandic) Print Language: SAMI - Clinical Impression Clinical Impression: Vertigo, Headache - Scribe Statement The provider has reviewed the documentation as recorded by the Isabella Guevara Provider Attestation: All medical record entries made by the Dennisibmary grace were at my direction and personally dictated by me. I have reviewed the chart and agree that the record accurately reflects my personal performance of the history, physical exam, medical decision making, and the department course for this patient. I have also personally directed, reviewed, and agree with the discharge instructions and disposition.
--- NOTE | 2017-10-16 10:55 | CARD ---
APPROVED REPORT Date of service: 10/15/2017 EKG Measurement Heart [id number] [place] 132P45 [id number] <Conclusion> Normal sinus rhythm Possible Left atrial enlargement Nonspecific ST and T wave abnormality Abnormal ECG
== END 2017-10-15 13:36 | disposition home or self-care (01) ==
LOC: C.ER 12:02
DX: R42 Dizziness and giddiness (principal); R51 Headache; E11.9 Type 2 diabetes mellitus without complications; I10 Essential (primary) hypertension; E78.00 Pure hypercholesterolemia, unspecified; M81.0 Age-related osteoporosis without current pathological fracture

== ENCOUNTER 2018-03-18 08:15 | Outpatient (CLI) | payer MEDICARE | END 2018-03-18 08:16 | disposition home or self-care (01) | LOC: C.RADH 08:15 | DX: I63.9 Cerebral infarction, unspecified (principal); R13.10 Dysphagia, unspecified ==

== ENCOUNTER 2018-07-08 19:34 | Emergency (ER) | payer MEDICARE ==
[2018-07-08 21:18] VITALS: RESP 16
--- NOTE | 2018-07-08 21:52 | C.PDOC ---
History Of Present Illness 67 year old female presents with 2 days of occipital headache. Denies nausea or vomiting. Time Seen by Provider: 07/08/18 20:04 Chief Complaint (Nursing): Headache History Per: Patient History/Exam Limitations: no limitations Onset/Duration Of Symptoms: Days (2) Current Symptoms Are (Timing): Still Present Preceeding Symptoms: None Recent travel outside of the [place]: No Past Medical History Reviewed: Historical Data, Nursing Documentation, Vital Signs Vital Signs: Last Vital Signs Temp 98.9 F 07/08/18 19:41 Pulse 70 07/08/18 21:05 Resp 16 07/08/18 21:05 BP 165/80 H 07/08/18 21:05 Pulse Ox 98 07/08/18 21:05 Primary Care Provider: Emily Braswell - Medical History PMH: Diabetes, Gall Bladder Disease (cholecystectomy), HTN, Hypercho lesterolemia, Hyperthyroidism, Hypothyroidism, Migraine, Osteoporosis (OSTEOPENIA) Denies: Colonic Polyps, Fractures, Chronic Kidney Disease, TIA Surgical History: Cholecystectomy - [facility] Procedures DX ULTRASOUND-HEAD/NECK (11/27/12) PERCUTAN NEEDLE BX OF THYROID GLAND (11/27/12) Family History: States: Unknown Family Hx - Social History Hx Tobacco Use: No Hx Alcohol Use: No Hx Substance Use: No - Immunization History Hx Tetanus Toxoid Vaccination: No Hx Influenza Vaccination: No Hx Pneumococcal Vaccination: Yes Review Of Systems Constitutional: Negative for: Fever, Chills Cardiovascular: Negative for: Chest Pain, Palpitations Respiratory: Negative for: Cough, Shortness of Breath Gastrointestinal: Negative for: Nausea, Vomiting Neurological: Positive for: Headache. Negative for: Weakness, Numbness Physical Exam - Physical Exam Appears: Non-toxic Skin: Normal Color, Warm Head: Atraumatic, Normacephalic, Other (Digitally reproducible tenderness in occipital insert of trapezius.) Eye(s): bilateral: Normal Inspection, PERRL, EOMI Oral Mucosa: Moist Neck: Normal, Supple Chest: Symmetrical, No Tenderness Cardiovascular: Rhythm Regular Respiratory: Normal Breath Sounds, No Rales, No Rhonchi, No Wheezing Gastrointestinal/Abdominal: Soft, No Tenderness Extremity: Normal ROM (x4) Neurological/Psych: Oriented x3, Normal Speech, Normal Motor, Normal Sensation ED Course And Treatment O2 Sat by Pulse Oximetry: 98 (Room air) Pulse Ox Interpretation: Normal Medical Decision Making Medical Decision Making: occipital/tension PHELAN muscular component, no neuro compnent s/s relieved with ED Tx Disposition Doctor Will See Patient In The: Office Counseled Patient/Family Regarding: Studies Performed, Diagnosis - Disposition Referrals: Emily Braswell DO [Resident] - Disposition: HOME/ ROUTINE Disposition Time: 21:52 Condition: GOOD Additional Instructions: Sigue con heilo en el parte del chaim atras NADA CALIENTE NO DIGNA SHERLY CALIENTE POR 2 LASSITER Ibuprofeno/Advil 400-600 mg cada 6 horas kendell necessario Instructions: Tension Headache Forms: [employer] (Tunisian) Print Language: KOREAN - Clinical Impression Clinical Impression: Tension headache - Scribe Statement The provider has reviewed the documentation as recorded by the Scribe Wade Cardenas All medical record entries made by the Scribe were at my direction and personally dictated by me. I have reviewed the chart and agree that the record accurately reflects my personal performance of the history, physical exam, medical decision making, and the department course for this patient. I have also personally directed, reviewed, and agree with the discharge instructions and disposition.
[2018-07-08 22:03] VITALS: BP 150/78; PULSE 68; TEMP 98.2
[2018-07-08 22:59] VITALS: O2SAT 98
== END 2018-07-08 22:12 | disposition home or self-care (01) ==
LOC: C.ER 19:34
DX: G44.209 Tension-type headache, unspecified, not intractable (principal)
CPT/HCPCS: 96372; 99284; J1885

== ENCOUNTER 2018-07-09 10:12 | Observation (INO) | payer MEDICARE ==
[2018-07-09] MEDS ORDERED: Lactated Ringer's 1,000 ML IV STA (11:18)
--- NOTE | 2018-07-09 11:35 | C.PDOC ---
History Of Present Illness Patient is a 67yo female with hx of DM who presents to the ED with complaint of a posterior headache and neck pain that began 2 days ago. She states today she developed nausea and vomiting. Patient states 6 days ago she had visual changes to the bilateral eyes that she describes as a "snow storm" and has a "black ball" to the left eye. Patient states that pain is moderate, "brain pain" and worse with positional changes of the head. States she has been taking advil and ibuprofen without relief. Patient also states she came to this ED 1 day ago and was given pills for her discomfort without relief. Patient denies fevers, numbn ess, tingling, neck stiffness, this being the worst headache of her life, chest pain, SOB, extremity weakness, or recent head injury. 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 States she suffers from headaches but this does not feel the same. No other complaints of illness or injury at this time. Time Seen by Provider: 07/09/18 10:36 Chief Complaint (Nursing): Headache History Per: Patient Onset/Duration Of Symptoms: Days Current Symptoms Are (Timing): Worse Past Medical History Reviewed: Historical Data, Nursing Documentation, Vital Signs Primary Care Provider: Clinic,Med Surg - Medical History PMH: Diabetes, Gall Bladder Disease (cholecystectomy), HTN, Hypercholesterolemia, Hyperthyroidism, Hypothyroidism, Migraine, Osteoporosis (OSTEOPENIA) Denies: Colonic Polyps, Fractures, Chronic Kidney Disease, TIA Surgical History: Cholecystectomy - [facility] Procedures DX ULTRASOUND-HEAD/NECK (11/27/12) PERCUTAN NEEDLE BX OF THYROID GLAND (11/27/12) Family History: States: Unknown Family Hx - Social History Hx Tobacco Use: No Hx Alcohol Use: No Hx Substance Use: No - Immunization History Hx Tetanus Toxoid Vaccination: No Hx Influenza Vaccination: No Hx Pneumococcal Vaccination: Yes Review Of Systems Except As Marked, All Systems Reviewed And Found Negative. Physical Exam - Physical Exam Appears: Well, Non-toxic, No Acute Distress, Other (Looks uncomfortable, keeps head straight to avoid head movements, ) Skin: Normal Color Head: Atraumatic, Tenderness (bilateral temporal tenderness (L>R)) Eye(s): bilateral: Normal Inspection, PERRL, EOMI Nose: Normal Oral Mucosa: Moist Lips: Normal Appearing Neck: Decreased ROM, Other (tenderness to the left lateral muscles) Lymphatic: Normal Exam Chest: Symmetrical Cardiovascular: Rhythm Regular Respiratory: Normal Breath Sounds Gastrointestinal/Abdominal: Normal Exam Extremity: Normal ROM DTR: Bicep (R): 2+, Bicep (L): 2+, Knee (R): 2+, Knee (L): 2+ Neurological/Psych: Oriented x3, Normal Speech, Normal Cognition, No Normal Cranial Nerves (face is assymetric with right sided weakness (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 : [id number]. Patient Name / ID : ROLANDA GARDNER / [id number]. Exam Date : 07/09/2018 11:59:16 ( Approved ). Study Comment : Sex / Age : F / 67Y. Creator : Radha Briscoe. Dictator : Freddy Alvares MD. Kiln Tender : Human Resources Services Specialist : Freddy Alvares MD. Approver2 : Report Date : 07/09/2018 12:25:43. My Comment : . Date of service: 07/09/2018. PROCEDURE: CT HEAD WITHOUT CONTRAST. HISTORY: Headache. COMPARISON: 03/18/2018. TECHNIQUE: Axial computed tomography images were obtained through the head/brain without intravenous contrast. Radiation dose: Total exam DLP = 954.19 mGy-cm. This CT exam was performed using one or more of the following dose reduction techniques: Automated exposure control, adjustment of the mA and/or kV according to patient size, and/or use of iterative reconstruction technique. FINDINGS: HEMORRHAGE: No intracranial hemorrhage. BRAIN: No mass effect or edema. No atrophy or chronic microvascular ischemic changes. VENTRICLES: Unremarkable. No hydrocephalus. CALVARIUM: Unremarkable. PARANASAL SINUSES: Unremarkable as visualized. No significant inflammatory changes. MASTOID AIR CELLS: Unremarkable as visualized. No inflammatory changes. OTHER FINDINGS: None. IMPRESSION: Normal CT of the Head. No intracranial mass, hemorrhage or evidence of acute infarct. Progress Note: Plan is to do CT brain, labwork, and EKG. Reevaluation Time: 12:21 (Patient states she is no longer nauseas and is hungry, states she still has head pain) Reassessment Condition: Improved - Physician Consult Information Physician Contacted: Osman Blank Outcome Of Conversation: Accepted to med/surg for observation. Medical Decision Making Medical Decision Making: Patient is a 67yo female with hx of HTN, DM and headaches, now with intractable headache x 2 days with visual disturbances and nausea with vomiting. Labs wnl as cornelio from hyperglycemia. CT wnl. Will be hospitalized to [facility] for further evaluation with possible neurology consult, MRI. Disposition - Disposition Disposition: HOSPITALIZED Disposition Time: 13:44 Condition: FAIR - Clinical Impression Clinical Impression: Headache Decision To Admit - Pt Status Changed To: Hospital Disposition Of: Observation - . Bed Request Type: Regular Admitting Physician: Osman Blank Patient Diagnosis: Headache
[2018-07-09] MEDS ORDERED: Lactated Ringer's 1,000 ML ONE (11:38)
[2018-07-09 11:57] LABS: BASO % 0.4 % (0.0-2.0); EOS % 0.4 % (0.0-4.0); HEMOGLOBIN 14.2 g/dL (11.0-16.0); LYMPH # 1.4 K/uL (1.0-4.3); LYMPH % 14.6 % (20.0-40.0); MEAN CORPUSCULAR HEMOGLOBIN 31.2 pg (27.0-31.0); MEAN CORPUSCULAR HGB CONC 33.7 g/dL (33.0-37.0); MEAN PLATELET VOLUME 7.6 fL (7.2-11.7); MONO # 0.3 K/uL (0.0-0.8); MONO % 3.3 % (0.0-10.0); NEUT % 81.3 % (50.0-75.0); RBC 4.55 Mil/uL (3.80-5.20); RED CELL DISTRIBUTION WIDTH 13.7 % (11.5-14.5); WHITE BLOOD COUNT 9.8 K/uL (4.8-10.8)
[2018-07-09 11:59] LABS: MEAN CELL VOLUME 92.8 fL (81.0-99.0)
[2018-07-09 12:06] LABS: SQUAMOUS EPITHIAL 4 /hpf (0-5); URINE BACTERIA RARE (<OCC); URINE BILIRUBIN NEGATIVE (NEGATIVE); URINE BLOOD NEGATIVE (NEGATIVE); URINE CLARITY Clear (Clear); URINE COLOR Yellow (YELLOW); URINE GLUCOSE (UA) 2+ mg/dL (Normal); URINE LEUKOCYTE ESTERASE 1+ Leu/uL (Negative); URINE PROTEIN NEGATIVE (NEGATIVE); URINE UROBILINOGEN NORMAL mg/dL (0.2-1.0)
[2018-07-09 12:10] LABS: ALB/GLOB RATIO 1.3 (1.0-2.1); ALBUMIN 4.6 g/dL (3.5-5.0); ALT/SGPT 37 U/L (9-52); AST/SGOT 38 U/L (14-36); BLOOD UREA NITROGEN 10 mg/dL (7-17); CALCIUM 9.7 mg/dl (8.6-10.4); GFR NON-AFRICAN AMERICAN > 60
[2018-07-09 12:20] LABS: BARBITURATES, UR NEGATIVE (NEGATIVE); BENZODIAZEPINES, UR NEGATIVE (NEGATIVE); OPIATES, UR NEGATIVE (NEGATIVE); PHENCYCLIDINE, UR NEGATIVE (NEGATIVE)
--- NOTE | 2018-07-09 12:59 | CT ---
Date of service: 07/09/2018 PROCEDURE: CT HEAD WITHOUT CONTRAST. HISTORY: Headache COMPARISON: 03/18/2018 TECHNIQUE: Axial computed tomography images were obtained through the head/brain without intravenous contrast. Radiation dose: Total exam DLP = 954.19 mGy-cm. This CT exam was performed using one or more of the following dose reduction techniques: Automated exposure control, adjustment of the mA and/or kV according to patient size, and/or use of iterative reconstruction technique. FINDINGS: HEMORRHAGE: No intracranial hemorrhage. BRAIN: No mass effect or edema. No atrophy or chronic microvascular ischemic changes. VENTRICLES: Unremarkable. No hydrocephalus. CALVARIUM: Unremarkable. PARANASAL SINUSES: Unremarkable as visualized. No significant inflammatory changes. MASTOID AIR CELLS: Unremarkable as visualized. No inflammatory changes. OTHER FINDINGS: None. IMPRESSION: Normal CT of the Head. No intracranial mass, hemorrhage or evidence of acute infarct.
--- NOTE | 2018-07-09 16:05 | CARD ---
APPROVED REPORT Date of service: 07/09/2018 EKG Measurement Heart [id number] [place] 148P59 [id number] <Conclusion> Normal sinus rhythm Normal ECG
[2018-07-09] MEDS ORDERED: Dextrose 50% SYRINGE Inj (50 ml) IV PRN (16:12)
[2018-07-09] MEDS ORDERED: Glucagon Recombinant 1 mg Inj IM PRN (16:12)
--- NOTE | 2018-07-09 16:13 | CP.PCM.HP ---
<Thai Tucker - Last Filed: 07/09/18 17:31> History of Present Illness - History of Present Illness History of Present Illness: H&P for Dr. Rosamaria YEN "headache, nausea, vomiting" HPI: Patient is a 67 year old female with history of diabetes who presents for 3 day history of left sided headache, neck ache, and upper back pain that started suddenly while she was seated watching TV. She denies exerting herself in any way before her pain started. She has taken Advil for her symptoms without significant improvement. She states that her pain is worse with rotation of head to left. She rates her pain a 3/10 at rest, and 7/10 with movement. She states she had an episode of dizziness that described as room spinning sensation occurred this morning the lasted about 10 minutes. She was seen in the ED last night for similar symptoms and she was given a script for Advil for his pain. She started vomiting this morning at 7am, states she had about 6 episodes of nonbloody nonbilious emesis, consisting mostly of food. She states she currently would like to eat and does not feel nauseated. She states she has a history of migraines, she typically has right sided headaches with involvement of her right eye. She admits to some changes in her vision that started last week with seeing black spots in her left eye that move. She was seen by Opthalmology earlier in the week and she was told that she had cataracts. She denies fevers, chills, chest pain, shortness of breath, chest pain, palpitations, constipation, diarrhea, dysuria, urinary frequency, hematuria, leg pain, leg swelling. She states she had paralysis on the right sided of her face, but it mostly resolved a year later, with some mild residual facial droop. She denies back pain, bowel or bladder incontinence. PMH: Diabetes, vertigo, hyperthyroidism, hyperlipidemia PSH: open cholecystectomy, tubal ligation Social hx: denies history of tobacco, alcohol or drug use. Doesn't work currently. Family hx: Brothers (+) DM Home meds: Methimazole 5mg, Meclizine 25mg PO, Lisinopril 2.5mg PO, Crestor 5mg, Metformin 1000mg PO BID, Systane eye drops Allergies: NKDA Full code No advance directive Health care proxy: Reginaldo Tolentino [phone] Present on Admission - Present on Admission Any Indicators Present on Admission: No Review of Systems - Constitutional Constitutional: absent: Chills, Fever - EENT Eyes: Change in Vision, Spots in Vision Ears: absent: Decreased Hearing Nose/Mouth/Throat: absent: Nasal Congestion, Post Nasal Drip, Sore Throat - Cardiovascular Cardiovascular: absent: Chest Pain, Dyspnea - Respiratory Respiratory: absent: Cough, Dyspnea - Gastrointestinal Gastrointestinal: Nausea, Vomiting. absent: Abdominal Pain, Constipation, Diarrhea - Genitourinary Genitourinary: absent: Difficulty Urinating, Dysuria - Musculoskeletal Musculoskeletal: Abnormal Gait (Slow). absent: Numbness, Stiffness, Tingling - Neurological Neurological: Dizziness, Headaches. absent: Abnormal Hearing, Confusion - Psychiatric Psychiatric: absent: Anxiety, Depression Past Patient History - Infectious Disease Hx of Infectious Diseases: None - Past Medical History & Family History Past Medical History?: Yes - Past Social History Smoking Status: Never Smoked - CARDIAC Hx Hypercholesterolemia: Yes Hx Hypertension: Yes - PULMONARY Hx Respiratory Disorders: No - NEUROLOGICAL Hx Migraine: Yes Hx Transient Ischemic Attacks (TIA): No - HEENT Hx HEENT Problems: Yes Other/Comment: PTYRGIUM LEFT EYE; SEASONAL ALLERGIES. - RENAL Hx Chronic Kidney Disease: No - ENDOCRINE/METABOLIC Hx Hyperthyroidism: Yes Hx Hypothyroidism: Yes - HEMATOLOGICAL/ONCOLOGICAL Hx Blood Disorders: Yes Other/Comment: VITAMIN D DEFICIENCY - INTEGUMENTARY Hx Dermatological Problems: No - MUSCULOSKELETAL/RHEUMATOLOGICAL Hx Fractures: No Hx Osteoporosis: Yes (OSTEOPENIA) - GASTROINTESTINAL Hx Gall Bladder Disease: Yes (cholecystectomy) - GENITOURINARY/GYNECOLOGICAL Hx Genitourinary Disorders: No - PSYCHIATRIC Hx Substance Use: No - SURGICAL HISTORY Hx Cholecystectomy: Yes - ANESTHESIA Hx Anesthesia: Yes Hx Anesthesia Reactions: No Hx Malignant Hyperthermia: No Meds Allergies/Adverse Reactions: Allergies Allergy/AdvReac Type Severity Reaction Status Date / Time No Known Allergies Allergy Verified 07/09/18 10:25 Physical Exam - Constitutional Appears: Well, Non-toxic, No Acute Distress - Head Exam Head Exam: ATRAUMATIC, NORMOCEPHALIC - Eye Exam Eye Exam: EOMI, Nystagmus (horizontal), PERRL - ENT Exam ENT Exam: Mucous Membranes Moist - Neck Exam Neck exam: Positive for: Tenderness (left sided paracervical tenderenss ). Negative for: Lymphadenopathy, Thyromegaly Additional comments: limited range of motion with rotation to left secondary to pain able to rotate head to right left upper trapezius hypertrophic and tender to palpation no midline tenderness - Respiratory Exam Respiratory Exam: Clear to Auscultation Bilateral, NORMAL BREATHING PATTERN. absent: Rales, Rhonchi, Wheezes, Respiratory Distress, Stridor - Cardiovascular Exam Cardiovascular Exam: REGULAR RHYTHM, +S1, +S2. absent: Gallop, Rubs, Systolic Murmur - GI/Abdominal Exam GI & Abdominal Exam: Normal Bowel Sounds, Soft. absent: Distended, Firm, Guarding, Tenderness - Extremities Exam Extremities exam: Positive for: pedal pulses present. Negative for: calf tenderness, pedal edema - Back Exam Back exam: absent: CVA tenderness (L), CVA tenderness (R) - Neurological Exam Neurological exam: Alert, Oriented x3, Reflexes Normal Additional comments: Mild residual right sided facial droop No slurred speech Slow gait no uvular deviation Sensation equal in upper and lower extremities Strength 5/5 in upper and lower extremities DTRs 2/4 Negative Romberg No dysmetria, heel to caldera intact. - Psychiatric Exam Psychiatric exam: Normal Affect, Normal Mood - Skin Skin Exam: Dry, Intact, Warm Results - Vital Signs Recent Vital Signs: Last Vital Signs Temp 98 F 07/09/18 13:25 Pulse 73 07/09/18 15:58 Resp 16 07/09/18 15:58 BP 147/78 07/09/18 15:58 Pulse Ox 99 07/09/18 15:58 - Labs Result Diagrams: 07/09/18 11:53 07/09/18 11:53 Labs: Laboratory Results - last 24 hr 07/09/18 07/09/18 07/09/18 11:53 11:53 11:53 WBC 9.8 RBC 4.55 Hgb 14.2 Hct 42.2 MCV 92.8 D MCH 31.2 H MCHC 33.7 RDW 13.7 Plt Count 250 MPV 7.6 Neut % (Auto) 81.3 H Lymph % (Auto) 14.6 L [place] % (Auto) 3.3 Eos % (Auto) 0.4 Baso % (Auto) 0.4 Neut # (Auto) 8.0 H Lymph # (Auto) 1.4 [place] # (Auto) 0.3 Eos # (Auto) 0.0 Baso # (Auto) 0.0 ESR 10 Sodium 139 Potassium 4.9 Chloride 99 Carbon Dioxide 25 Anion Gap 20 BUN 10 Creatinine 0.6 L Est GFR ( Amer) > 60 Est GFR (Non-Af Amer) > 60 Random Glucose 231 H D Calcium 9.7 Total Bilirubin 0.4 AST 38 H ALT 37 Alkaline Phosphatase 101 Total Protein 8.2 Albumin 4.6 Globulin 3.6 Albumin/Globulin Ratio 1.3 Urine Color Yellow Urine Clarity Clear Urine pH 5.0 Ur Specific [place] 1.017 Urine Protein Negative Urine Glucose (UA) 2+ H Urine Ketones 1+ H Urine Blood Negative Urine Nitrate Negative Urine Bilirubin Negative Urine Urobilinogen Normal Ur Leukocyte Esterase 1+ H Urine WBC (Auto) < 1 Urine RBC (Auto) 1 Ur Squamous Epith Cells 4 Urine Bacteria Rare Urine Opiates Screen Urine Methadone Screen Ur Barbiturates Screen Ur Phencyclidine Scrn Ur Amphetamines Screen U Benzodiazepines Scrn U Oth Cocaine Metabols U Cannabinoids Screen 07/09/18 11:53 WBC RBC Hgb Hct MCV MCH MCHC RDW Plt Count MPV Neut % (Auto) Lymph % (Auto) [place] % (Auto) Eos % (Auto) Baso % (Auto) Neut # (Auto) Lymph # (Auto) [place] # (Auto) Eos # (Auto) Baso # (Auto) ESR Sodium Potassium Chloride Carbon Dioxide Anion Gap BUN Creatinine Est GFR ( Amer) Est GFR (Non-Af Amer) Random Glucose Calcium Total Bilirubin AST ALT Alkaline Phosphatase Total Protein Albumin Globulin Albumin/Globulin Ratio Urine Color Urine Clarity Urine pH Ur Specific [place] Urine Protein Urine Glucose (UA) Urine Ketones Urine Blood Urine Nitrate Urine Bilirubin Urine Urobilinogen Ur Leukocyte Esterase Urine WBC (Auto) Urine RBC (Auto) Ur Squamous Epith Cells Urine Bacteria Urine Opiates Screen Negative Urine Methadone Screen Negative Ur Barbiturates Screen Negative Ur Phencyclidine Scrn Negative Ur Amphetamines Screen Negative U Benzodiazepines Scrn Negative U Oth Cocaine Metabols Negative U Cannabinoids Screen Negative Assessment & Plan - Assessment and Plan (Free Text) Assessment: 67 year old female with history of diabetes and hyperthyroidism who presents for left sided headache associated with vomiting, and vision changes. Plan: Left sided Headache associated with vision changes, acute History of Migraine, chronic CT head negative MRI brain without contrast pending EKG SR [address] changes ESR 10 UDS negative BAL panel pending TSH/T4 pending A1c pending ASA 81mg PO Reglan 10mg Q6 PRN Naproxen 275mg PO BID NS @ 100cc/hr IV Imitrex 100mg PO daily History of Diabetes, chronic Random glucose 231, UA glucose 2+ glucose, ketone 1+ Follow up A1c Continue Metformin 1000mg PO BID ISS Hypoglycemic treatment protocol Lisinopril 2.5mg PO daily History of hyperthyroidism, chronic Methimazole 5mg PO BID follow up TSH/T4 History of hyperlipidemia Crestor 5mg PO HS Prophylaxis Heparin 5000 unis SC Q8 Regular diet Protonix 40mg PO daily Case discussed with Dr. Rosamaria Tucker, PGY1 <Osman Blank - Last Filed: 07/09/18 18:09> Results - Vital Signs Recent Vital Signs: Last Vital Signs Temp 98 F 07/09/18 16:54 Pulse 73 07/09/18 15:58 Resp 18 07/09/18 16:54 BP 147/78 07/09/18 15:58 Pulse Ox 99 07/09/18 15:58 - Labs Result Diagrams: 07/09/18 11:53 07/09/18 11:53 Labs: Laboratory Results - last 24 hr 07/09/18 07/09/18 07/09/18 11:53 11:53 11:53 WBC 9.8 RBC 4.55 Hgb 14.2 Hct 42.2 MCV 92.8 D MCH 31.2 H MCHC 33.7 RDW 13.7 Plt Count 250 MPV 7.6 Neut % (Auto) 81.3 H Lymph % (Auto) 14.6 L [place] % (Auto) 3.3 Eos % (Auto) 0.4 Baso % (Auto) 0.4 Neut # (Auto) 8.0 H Lymph # (Auto) 1.4 [place] # (Auto) 0.3 Eos # (Auto) 0.0 Baso # (Auto) 0.0 ESR 10 Sodium 139 Potassium 4.9 Chloride 99 Carbon Dioxide 25 Anion Gap 20 BUN 10 Creatinine 0.6 L Est GFR ( Amer) > 60 Est GFR (Non-Af Amer) > 60 Random Glucose 231 H D Calcium 9.7 Total Bilirubin 0.4 AST 38 H ALT 37 Alkaline Phosphatase 101 Total Protein 8.2 Albumin 4.6 Globulin 3.6 Albumin/Globulin Ratio 1.3 Urine Color Yellow Urine Clarity Clear Urine pH 5.0 Ur Specific [place] 1.017 Urine Protein Negative Urine Glucose (UA) 2+ H Urine Ketones 1+ H Urine Blood Negative Urine Nitrate Negative Urine Bilirubin Negative Urine Urobilinogen Normal Ur Leukocyte Esterase 1+ H Urine WBC (Auto) < 1 Urine RBC (Auto) 1 Ur Squamous Epith Cells 4 Urine Bacteria Rare Urine Opiates Screen Urine Methadone Screen Ur Barbiturates Screen Ur Phencyclidine Scrn Ur Amphetamines Screen U Benzodiazepines Scrn U Oth Cocaine Metabols U Cannabinoids Screen 07/09/18 11:53 WBC RBC Hgb Hct MCV MCH MCHC RDW Plt Count MPV Neut % (Auto) Lymph % (Auto) [place] % (Auto) Eos % (Auto) Baso % (Auto) Neut # (Auto) Lymph # (Auto) [place] # (Auto) Eos # (Auto) Baso # (Auto) ESR Sodium Potassium Chloride Carbon Dioxide Anion Gap BUN Creatinine Est GFR ( Amer) Est GFR (Non-Af Amer) Random Glucose Calcium Total Bilirubin AST ALT Alkaline Phosphatase Total Protein Albumin Globulin Albumin/Globulin Ratio Urine Color Urine Clarity Urine pH Ur Specific [place] Urine Protein Urine Glucose (UA) Urine Ketones Urine Blood Urine Nitrate Urine Bilirubin Urine Urobilinogen Ur Leukocyte Esterase Urine WBC (Auto) Urine RBC (Auto) Ur Squamous Epith Cells Urine Bacteria Urine Opiates Screen Negative Urine Methadone Screen Negative Ur Barbiturates Screen Negative Ur Phencyclidine Scrn Negative Ur Amphetamines Screen Negative U Benzodiazepines Scrn Negative U Oth Cocaine Metabols Negative U Cannabinoids Screen Negative Attending/Attestation - Attestation I have personally seen and examined this patient.: Yes I have fully participated in the care of the patient.: Yes I have reviewed all pertinent clinical information: Yes Notes (Text): seen and examined 1.Headache,nausea,vomiting likely acute migraine headache 2.Vision changes ?History of chronic vision issues,seen by opthalmologist last week 3.Unsteady ?,no focal wekaness,normal CT brain,we will do MRI brain observe tonight with hydration Imitrex Sc, uncontrolled DM-Discussed about sugar control possible d/c tomorrow
[2018-07-09] MEDS ORDERED: Sodium Chloride 0.9% 1,000 ML ONE (16:21)
[2018-07-09] MEDS: Sodium Chloride 0.9% 1,000 ML IV SCH (16:29)
--- NOTE | 2018-07-09 18:17 | MRI ---
Date of service: 07/09/2018 PROCEDURE: MRI BRAIN WITHOUT CONTRAST HISTORY: rule out TIA COMPARISON: CT head without contrast from 07/09/2018 the TECHNIQUE: Multiplanar, multisequence MR images of the brain were obtained without intravenous contrast enhancement. FINDINGS: HEMORRHAGE: None DWI: No evidence of an acute or early subacute infarction. BRAIN PARENCHYMA: There are mild chronic microangiopathic changes. There is no mass, mass effect or abnormal extra-axial fluid collection. There is no territorial infarction. The midline sagittal structures are normal. VENTRICLES: There is mild age-related global parenchymal volume loss and proportionate enlargement of the ventricles and cortical sulci. CRANIUM: There is normal bone marrow signal pattern. ORBITS: Grossly unremarkable. PARANASAL SINUSES/MASTOIDS: Mild mucosal thickening in the ethmoid air cells and small right mastoid effusion. The remaining included paranasal sinuses are clear. VASCULAR SYSTEM: There are normal signal voids in the larger intracranial arteries. OTHER FINDINGS: None. IMPRESSION: No acute intracranial abnormality. Mild chronic microangiopathic changes and mild age-related global parenchymal volume loss.
[2018-07-09] MEDS: Naproxen 275 mg Tab PO SCH (18:53)
[2018-07-09] MEDS: (Novolin R) Insulin Human Regular 100 units/ml vial SC SCH ×2 (18:55→22:07)
[2018-07-09] MEDS: methIMAzole 5 MG TAB PO SCH (18:55)
[2018-07-09 20:15] LABS: CK-MB 0.74 ng/mL (0.0-3.38)
[2018-07-10 00:48] VITALS: RESP 20
[2018-07-10] MEDS: Sodium Chloride 0.9% 1,000 ML IV SCH (02:20)
[2018-07-10 06:58] LABS: BASO # 0.1 K/uL (0.0-0.2); BASO % 0.8 % (0.0-2.0); EOS # 0.2 K/uL (0.0-0.7); EOS % 2.3 % (0.0-4.0); HEMOGLOBIN 12.7 g/dL (11.0-16.0); LYMPH # 3.4 K/uL (1.0-4.3); LYMPH % 43.5 % (20.0-40.0); MEAN CELL VOLUME 93.2 fL (81.0-99.0); MEAN CORPUSCULAR HEMOGLOBIN 30.7 pg (27.0-31.0); MEAN CORPUSCULAR HGB CONC 32.9 g/dL (33.0-37.0); MEAN PLATELET VOLUME 7.9 fL (7.2-11.7); MONO # 0.5 K/uL (0.0-0.8); MONO % 5.9 % (0.0-10.0); NEUT # 3.7 K/uL (1.8-7.0); NEUT % 47.5 % (50.0-75.0); RBC 4.15 Mil/uL (3.80-5.20); RED CELL DISTRIBUTION WIDTH 13.9 % (11.5-14.5); WHITE BLOOD COUNT 7.7 K/uL (4.8-10.8)
[2018-07-10 07:33] LABS: ALB/GLOB RATIO 1.3 (1.0-2.1); ALBUMIN 3.6 g/dL (3.5-5.0); ALT/SGPT 33 U/L (9-52); AST/SGOT 33 U/L (14-36); BLOOD UREA NITROGEN 10 mg/dL (7-17); GFR NON-AFRICAN AMERICAN > 60
[2018-07-10 08:19] VITALS: PULSE 74; TEMP 97.6
[2018-07-10] MEDS: (Novolin R) Insulin Human Regular 100 units/ml vial SC SCH ×2 (08:53→13:51)
[2018-07-10 09:50] VITALS: BP 120/70; O2SAT 98
[2018-07-10] MEDS: methIMAzole 5 MG TAB PO SCH (09:52)
[2018-07-10] MEDS: Naproxen 275 mg Tab PO SCH (09:57)
[2018-07-10] MEDS ORDERED: Pantoprazole 40 mg EC Tab PO SCH (10:00)
[2018-07-10] MEDS ORDERED: Lidocaine 5% Patch TD STA (10:11)
--- NOTE | 2018-07-10 16:10 | CP.PCM.PN ---
Subjective - Date & Time of Evaluation Date of Evaluation: 07/10/18 Time of Evaluation: 16:09 - Subjective Subjective: H&P for Dr. Rosamaria YEN "headache, nausea, vomiting" HPI: Patient is a 67 year old female with history of diabetes who presents for 3 day history of left sided headache, neck ache, and upper back pain that started suddenly while she was seated watching TV. She denies exerting herself in any way before her pain started. She has taken Advil for her symptoms without significant improvement. She states that her pain is worse with rotation of head to left. She rates her pain a 3/10 at rest, and 7/10 with movement. She states she had an episode of dizziness that described as room spinning sensation occurred this morning the lasted about 10 minutes. She was seen in the ED last night for similar symptoms and she was given a script for Advil for his pain. She started vomiting this morning at 7am, states she had about 6 episodes of nonbloody nonbilious emesis, consisting mostly of food. She states she currently would like to eat and does not feel nauseated. She states she has a history of migraines, she typically has right sided headaches with involvement of her right eye. She admits to some changes in her vision that started last week with seeing black spots in her left eye that move. She was seen by Opthalmology earlier in the week and she was told that she had cataracts. She denies fevers, chills, chest pain, shortness of breath, chest pain, palpitations, constipation, diarrhea, dysuria, urinary frequency, hematuria, leg pain, leg swelling. She states she had paralysis on the right sided of her face, but it mostly resolved a year later, with some mild residual facial droop. She denies back pain, bowel or bladder incontinence. PMH: Diabetes, vertigo, hyperthyroidism, hyperlipidemia PSH: open cholecystectomy, tubal ligation Social hx: denies history of tobacco, alcohol or drug use. Doesn't work currently. Family hx: Brothers (+) DM Home meds: Methimazole 5mg, Meclizine 25mg PO, Lisinopril 2.5mg PO, Crestor 5mg, Metformin 1000mg PO BID, Systane eye drops Allergies: NKDA Full code No advance directive Health care proxy: Reginaldo Tolentino [phone] Pt admitted to r/o CVA CT head and MRI brain were Neg for acute pathology HgA1c found to be 9.4, pt insstructed to comply with low card low sugar diet and take diabetes meds as prescribed Objective - Vital Signs/Intake and Output Vital Signs (last 24 hours): Temp Pulse Resp BP Pulse Ox 97.6 F 74 20 120/70 98 07/10/18 08:16 07/10/18 08:16 07/10/18 08:16 07/10/18 08:30 07/10/18 08:30 Intake and Output: 07/10/18 07/10/18 06:59 18:59 Intake Total 1700 800 Output Total 1 Balance 1699 800 - Labs Labs: 07/10/18 06:42 07/10/18 06:42
--- NOTE | 2018-07-10 16:11 | CP.PCM.DIS ---
<Ravi Mayfield - Last Filed: 07/10/18 16:15> Provider - Provider Date of Admission: 07/09/18 13:41 Attending physician: Osman Blank MD Time Spent in preparation of Discharge (in minutes): 45 Diagnosis - Discharge Diagnosis (1) Headache Status: Acute (2) Diabetes mellitus Status: Chronic Hospital Course - Lab Results Lab Results: Most Recent Lab Values WBC 7.7 K/uL (4.8-10.8) 07/10/18 06:42 RBC 4.15 Mil/uL (3.80-5.20) 07/10/18 06:42 Hgb 12.7 g/dL (11.0-16.0) 07/10/18 06:42 Hct 38.6 % (34.0-47.0) 07/10/18 06:42 MCV 93.2 fL (81.0-99.0) 07/10/18 06:42 MCH 30.7 pg (27.0-31.0) 07/10/18 06:42 MCHC 32.9 g/dL (33.0-37.0) L 07/10/18 06:42 RDW 13.9 % (11.5-14.5) 07/10/18 06:42 Plt Count 222 K/uL (130-400) 07/10/18 06:42 MPV 7.9 fL (7.2-11.7) 07/10/18 06:42 Neut % (Auto) 47.5 % (50.0-75.0) L 07/10/18 06:42 Lymph % (Auto) 43.5 % (20.0-40.0) H 07/10/18 06:42 Carson % (Auto) 5.9 % (0.0-10.0) 07/10/18 06:42 Eos % (Auto) 2.3 % (0.0-4.0) 07/10/18 06:42 Baso % (Auto) 0.8 % (0.0-2.0) 07/10/18 06:42 Neut # (Auto) 3.7 K/uL (1.8-7.0) 07/10/18 06:42 Lymph # (Auto) 3.4 K/uL (1.0-4.3) 07/10/18 06:42 Carson # (Auto) 0.5 K/uL (0.0-0.8) 07/10/18 06:42 Eos # (Auto) 0.2 K/uL (0.0-0.7) 07/10/18 06:42 Baso # (Auto) 0.1 K/uL (0.0-0.2) 07/10/18 06:42 ESR 10 mm/hr (0-20) 07/09/18 11:53 Sodium 141 mmol/L (132-148) 07/10/18 06:42 Potassium 4.5 mmol/L (3.6-5.2) 07/10/18 06:42 Chloride 106 mmol/L (98-107) 07/10/18 06:42 Carbon Dioxide 28 mmol/L (22-30) 07/10/18 06:42 Anion Gap 12 (10-20) 07/10/18 06:42 BUN 10 mg/dL (7-17) 07/10/18 06:42 Creatinine 0.7 mg/dL (0.7-1.2) 07/10/18 06:42 Est GFR ( Amer) > 60 07/10/18 06:42 Est GFR (Non-Af Amer) > 60 07/10/18 06:42 POC Glucose (mg/dL) 230 mg/dL (65-110) H 07/10/18 11:14 Random Glucose 159 mg/dL (65-105) H D 07/10/18 06:42 Hemoglobin A1c 9.4 % (4.2-6.5) H 07/09/18 19:38 Calcium 9.0 mg/dl (8.6-10.4) 07/10/18 06:42 Phosphorus 3.8 mg/dL (2.5-4.5) 07/10/18 06:42 Magnesium 2.0 mg/dL (1.6-2.3) 07/10/18 06:42 Total Bilirubin 0.3 mg/dL (0.2-1.3) 07/10/18 06:42 AST 33 U/L (14-36) 07/10/18 06:42 ALT 33 U/L (9-52) 07/10/18 06:42 Alkaline Phosphatase 72 U/L (38-126) 07/10/18 06:42 Total Creatine Kinase 45 U/L (30-135) 07/09/18 19:38 CK-MB (Mass) 0.74 ng/mL (0.0-3.38) 07/09/18 19:38 Troponin I < 0.0120 ng/mL (0.00-0.120) 07/09/18 19:38 Total Protein 6.4 g/dL (6.3-8.3) 07/10/18 06:42 Albumin 3.6 g/dL (3.5-5.0) 07/10/18 06:42 Globulin 2.8 gm/dL (2.2-3.9) 07/10/18 06:42 Albumin/Globulin Ratio 1.3 (1.0-2.1) 07/10/18 06:42 Free T4 0.84 ng/dL (0.78-2.19) 07/09/18 19:38 TSH 3rd Generation 1.49 mIU/L (0.46-4.68) 07/09/18 19:38 Urine Color Yellow (YELLOW) 07/09/18 11:53 Urine Clarity Clear (Clear) 07/09/18 11:53 Urine pH 5.0 (5.0-8.0) 07/09/18 11:53 Ur Specific [place] 1.017 (1.003-1.030) 07/09/18 11:53 Urine Protein Negative mg/dL (NEGATIVE) 07/09/18 11:53 Urine Glucose (UA) 2+ mg/dL (Normal) H 07/09/18 11:53 Urine Ketones 1+ mg/dL (NEGATIVE) H 07/09/18 11:53 Urine Blood Negative (NEGATIVE) 07/09/18 11:53 Urine Nitrate Negative (NEGATIVE) 07/09/18 11:53 Urine Bilirubin Negative (NEGATIVE) 07/09/18 11:53 Urine Urobilinogen Normal mg/dL (0.2-1.0) 07/09/18 11:53 Ur Leukocyte Esterase 1+ Izzy/uL (Negative) H 07/09/18 11:53 Urine WBC (Auto) < 1 /hpf (0-5) 07/09/18 11:53 Urine RBC (Auto) 1 /hpf (0-3) 07/09/18 11:53 Ur Squamous Epith Cells 4 /hpf (0-5) 07/09/18 11:53 Urine Bacteria Rare (<OCC) 07/09/18 11:53 Urine Opiates Screen Negative (NEGATIVE) 07/09/18 11:53 Urine Methadone Screen Negative (NEGATIVE) 07/09/18 11:53 Ur Barbiturates Screen Negative (NEGATIVE) 07/09/18 11:53 Ur Phencyclidine Scrn Negative (NEGATIVE) 07/09/18 11:53 Ur Amphetamines Screen Negative (NEGATIVE) 07/09/18 11:53 U Benzodiazepines Scrn Negative (NEGATIVE) 07/09/18 11:53 U Oth Cocaine Metabols Negative (NEGATIVE) 07/09/18 11:53 U Cannabinoids Screen Negative (NEGATIVE) 07/09/18 11:53 - Hospital Course Hospital Course: H&P for Dr. Blank CC "headache, nausea, vomiting" HPI: Patient is a 67 year old female with history of diabetes who presents for 3 day history of left sided headache, neck ache, and upper back pain that started suddenly while she was seated watching TV. She denies exerting herself in any way before her pain started. She has taken Advil for her symptoms without significant improvement. She states that her pain is worse with rotation of head to left. She rates her pain a 3/10 at rest, and 7/10 with movement. She states she had an episode of dizziness that described as room spinning sensation occurred this morning the lasted about 10 minutes. She was seen in the ED last night for similar symptoms and she was given a script for Advil for his pain. She started vomiting this morning at 7am, states she had about 6 episodes of nonbloody nonbilious emesis, consisting mostly of food. She states she currently would like to eat and does not feel nauseated. She states she has a history of migraines, she typically has right sided headaches with involvement of her right eye. She admits to some changes in her vision that started last week with seeing black spots in her left eye that move. She was seen by Opthalmology earlier in the week and she was told that she had cataracts. She denies fevers, chills, chest pain, shortness of breath, chest pain, palpitations, constipation, diarrhea, dysuria, urinary frequency, hematuria, leg pain, leg swelling. She states she had paralysis on the right sided of her face, but it mostly resolved a year later, with some mild residual facial droop. She denies back pain, bowel or bladder incontinence. PMH: Diabetes, vertigo, hyperthyroidism, hyperlipidemia PSH: open cholecystectomy, tubal ligation Social hx: denies history of tobacco, alcohol or drug use. Doesn't work currently. Family hx: Brothers (+) DM Home meds: Methimazole 5mg, Meclizine 25mg PO, Lisinopril 2.5mg PO, Crestor 5mg, Metformin 1000mg PO BID, Systane eye drops Allergies: NKDA Full code No advance directive Health care proxy: Reginaldo Tolentino [phone] Pt admitted to r/o CVA CT head and Brain MRI neg for acute pathology A1C found to be 9.4, pt counselled on compliance with diabetic diet and medications dc home Discharge Exam - Head Exam Head Exam: ATRAUMATIC, NORMOCEPHALIC - Additional Findings Additional findings: - Constitutional Appears: Well, Non-toxic, No Acute Distress - Head Exam Head Exam: ATRAUMATIC, NORMOCEPHALIC - Eye Exam Eye Exam: EOMI, Nystagmus (horizontal), PERRL - ENT Exam ENT Exam: Mucous Membranes Moist - Neck Exam Neck exam: Positive for: Tenderness (left sided paracervical tenderenss ). Negative for: Lymphadenopathy, Thyromegaly Additional comments: limited range of motion with rotation to left secondary to pain able to rotate head to right left upper trapezius hypertrophic and tender to palpation no midline tenderness - Respiratory Exam Respiratory Exam: Clear to Auscultation Bilateral, NORMAL BREATHING PATTERN. absent: Rales, Rhonchi, Wheezes, Respiratory Distress, Stridor - Cardiovascular Exam Cardiovascular Exam: REGULAR RHYTHM, +S1, +S2. absent: Gallop, Rubs, Systolic Murmur - GI/Abdominal Exam GI & Abdominal Exam: Normal Bowel Sounds, Soft. absent: Distended, Firm, Guarding, Tenderness - Extremities Exam Extremities exam: Positive for: pedal pulses present. Negative for: calf tenderness, pedal edema - Back Exam Back exam: absent: CVA tenderness (L), CVA tenderness (R) - Neurological Exam Neurological exam: Alert, Oriented x3, Reflexes Normal Additional comments: Mild residual right sided facial droop No slurred speech Slow gait no uvular deviation Sensation equal in upper and lower extremities Strength 5/5 in upper and lower extremities DTRs 2/4 Negative Romberg No dysmetria, heel to caldera intact. - Psychiatric Exam Psychiatric exam: Normal Affect, Normal Mood - Skin Skin Exam: Dry, Intact, Warm Discharge Plan - Discharge Medications Prescriptions: Aspirin [Aspirin Chewable] 81 mg PO DAILY #30 chew Glimepiride [amaRYL] 2 mg PO BID #60 tab Lisinopril [Zestril] 2.5 mg PO DAILY #30 tab MetFORMIN [glucoPHAGE] 1,000 mg PO BID #60 tab methIMAzole [Tapazole] 5 mg PO BID 60 Days tab Naproxen [Anaprox] 275 mg PO BID #8 tab - Follow Up Plan Condition: FAIR Disposition: HOME/ ROUTINE Instructions: Headache, Adult, Headache, Adult (DC), Aspirin, Glimepiride, Lisinopril, Metformin, Methimazole, Naproxen Additional Instructions: Pt is to be discharged home on her home medications as prescribed Aspirin [Aspirin Chewable] 81 mg PO DAILY #30 chew Glimepiride [amaRYL] 2 mg PO BID #60 tab Lisinopril [Zestril] 2.5 mg PO DAILY #30 tab MetFORMIN [glucoPHAGE] 1,000 mg PO BID #60 tab methIMAzole [Tapazole] 5 mg PO BID 60 Days tab Naproxen [Anaprox] 275 mg PO BID #8 tab Please follow up with Dr Hutton in the Clinic within 7 days take care and be well [facility] PGY1 Referrals: Josseline Hutton MD [Staff Provider] - <Osman Blank - Last Filed: 07/10/18 17:07> Provider - Provider Date of Admission: 07/09/18 13:41 Attending physician: Osman Blank MD Hospital Course - Lab Results Lab Results: Most Recent Lab Values WBC 7.7 K/uL (4.8-10.8) 07/10/18 06:42 RBC 4.15 Mil/uL (3.80-5.20) 07/10/18 06:42 Hgb 12.7 g/dL (11.0-16.0) 07/10/18 06:42 Hct 38.6 % (34.0-47.0) 07/10/18 06:42 MCV 93.2 fL (81.0-99.0) 07/10/18 06:42 MCH 30.7 pg (27.0-31.0) 07/10/18 06:42 MCHC 32.9 g/dL (33.0-37.0) L 07/10/18 06:42 RDW 13.9 % (11.5-14.5) 07/10/18 06:42 Plt Count 222 K/uL (130-400) 07/10/18 06:42 MPV 7.9 fL (7.2-11.7) 07/10/18 06:42 Neut % (Auto) 47.5 % (50.0-75.0) L 07/10/18 06:42 Lymph % (Auto) 43.5 % (20.0-40.0) H 07/10/18 06:42 Carson % (Auto) 5.9 % (0.0-10.0) 07/10/18 06:42 Eos % (Auto) 2.3 % (0.0-4.0) 07/10/18 06:42 Baso % (Auto) 0.8 % (0.0-2.0) 07/10/18 06:42 Neut # (Auto) 3.7 K/uL (1.8-7.0) 07/10/18 06:42 Lymph # (Auto) 3.4 K/uL (1.0-4.3) 07/10/18 06:42 Carson # (Auto) 0.5 K/uL (0.0-0.8) 07/10/18 06:42 Eos # (Auto) 0.2 K/uL (0.0-0.7) 07/10/18 06:42 Baso # (Auto) 0.1 K/uL (0.0-0.2) 07/10/18 06:42 ESR 10 mm/hr (0-20) 07/09/18 11:53 Sodium 141 mmol/L (132-148) 07/10/18 06:42 Potassium 4.5 mmol/L (3.6-5.2) 07/10/18 06:42 Chloride 106 mmol/L (98-107) 07/10/18 06:42 Carbon Dioxide 28 mmol/L (22-30) 07/10/18 06:42 Anion Gap 12 (10-20) 07/10/18 06:42 BUN 10 mg/dL (7-17) 07/10/18 06:42 Creatinine 0.7 mg/dL (0.7-1.2) 07/10/18 06:42 Est GFR ( Amer) > 60 07/10/18 06:42 Est GFR (Non-Af Amer) > 60 07/10/18 06:42 POC Glucose (mg/dL) 230 mg/dL (65-110) H 07/10/18 11:14 Random Glucose 159 mg/dL (65-105) H D 07/10/18 06:42 Hemoglobin A1c 9.4 % (4.2-6.5) H 07/09/18 19:38 Calcium 9.0 mg/dl (8.6-10.4) 07/10/18 06:42 Phosphorus 3.8 mg/dL (2.5-4.5) 07/10/18 06:42 Magnesium 2.0 mg/dL (1.6-2.3) 07/10/18 06:42 Total Bilirubin 0.3 mg/dL (0.2-1.3) 07/10/18 06:42 AST 33 U/L (14-36) 07/10/18 06:42 ALT 33 U/L (9-52) 07/10/18 06:42 Alkaline Phosphatase 72 U/L (38-126) 07/10/18 06:42 Total Creatine Kinase 45 U/L (30-135) 07/09/18 19:38 CK-MB (Mass) 0.74 ng/mL (0.0-3.38) 07/09/18 19:38 Troponin I < 0.0120 ng/mL (0.00-0.120) 07/09/18 19:38 Total Protein 6.4 g/dL (6.3-8.3) 07/10/18 06:42 Albumin 3.6 g/dL (3.5-5.0) 07/10/18 06:42 Globulin 2.8 gm/dL (2.2-3.9) 07/10/18 06:42 Albumin/Globulin Ratio 1.3 (1.0-2.1) 07/10/18 06:42 Free T4 0.84 ng/dL (0.78-2.19) 07/09/18 19:38 TSH 3rd Generation 1.49 mIU/L (0.46-4.68) 07/09/18 19:38 Urine Color Yellow (YELLOW) 07/09/18 11:53 Urine Clarity Clear (Clear) 07/09/18 11:53 Urine pH 5.0 (5.0-8.0) 07/09/18 11:53 Ur Specific [place] 1.017 (1.003-1.030) 07/09/18 11:53 Urine Protein Negative mg/dL (NEGATIVE) 07/09/18 11:53 Urine Glucose (UA) 2+ mg/dL (Normal) H 07/09/18 11:53 Urine Ketones 1+ mg/dL (NEGATIVE) H 07/09/18 11:53 Urine Blood Negative (NEGATIVE) 07/09/18 11:53 Urine Nitrate Negative (NEGATIVE) 07/09/18 11:53 Urine Bilirubin Negative (NEGATIVE) 07/09/18 11:53 Urine Urobilinogen Normal mg/dL (0.2-1.0) 07/09/18 11:53 Ur Leukocyte Esterase 1+ Izzy/uL (Negative) H 07/09/18 11:53 Urine WBC (Auto) < 1 /hpf (0-5) 07/09/18 11:53 Urine RBC (Auto) 1 /hpf (0-3) 07/09/18 11:53 Ur Squamous Epith Cells 4 /hpf (0-5) 07/09/18 11:53 Urine Bacteria Rare (<OCC) 07/09/18 11:53 Urine Opiates Screen Negative (NEGATIVE) 07/09/18 11:53 Urine Methadone Screen Negative (NEGATIVE) 07/09/18 11:53 Ur Barbiturates Screen Negative (NEGATIVE) 07/09/18 11:53 Ur Phencyclidine Scrn Negative (NEGATIVE) 07/09/18 11:53 Ur Amphetamines Screen Negative (NEGATIVE) 07/09/18 11:53 U Benzodiazepines Scrn Negative (NEGATIVE) 07/09/18 11:53 U Oth Cocaine Metabols Negative (NEGATIVE) 07/09/18 11:53 U Cannabinoids Screen Negative (NEGATIVE) 07/09/18 11:53 Attending/Attestation - Attestation I have personally seen and examined this patient.: Yes I have fully participated in the care of the patient.: Yes I have reviewed all pertinent clinical information, including history, physical exam and plan: Yes
== END 2018-07-10 12:26 | disposition home or self-care (01) ==
LOC: C.ER 10:12 → C.9E 13:41 → C.3T 16:03 → C.6T 07-10 11:56
PROVIDERS: ADMIT Internal Medicine; ATTEND Internal Medicine
DX: R51 Headache (principal); E11.9 Type 2 diabetes mellitus without complications; E78.00 Pure hypercholesterolemia, unspecified; E78.5 Hyperlipidemia, unspecified; G81.91 Hemiplegia, unspecified affecting right dominant side; M81.0 Age-related osteoporosis without current pathological fracture; I10 Essential (primary) hypertension; Z79.84 Long term (current) use of oral hypoglycemic drugs; E03.9 Hypothyroidism, unspecified; Z83.3 Family history of diabetes mellitus; Z90.49 Acquired absence of other specified parts of digestive tract
CPT/HCPCS: 36415; 70450; 70551; 80053; 81001; 82948; 83036; 83735; 84100; 84439; 84443; 84484; 85025; 85651; 93005; 96374; 99285; G0378; G0480; J1644; J2405; J7030; J7120

== ENCOUNTER 2018-07-17 05:21 | Emergency (ER) | payer MEDICARE ==
--- NOTE | 2018-07-17 05:51 | C.PDOC ---
History Of Present Illness Patient presents to the ER complaining of left neck pain. Patient was seen here on the 07/08/18 and 07/09/18 after which was admitted, had CT and MRI which were negative, discharge to follow up with PMD. Patient returns complaining of left lateral neck pain and difficulty turning her head to the left due to pain. Denies fever, weakness, or numbness. Time Seen by Provider: 07/17/18 05:50 Chief Complaint (Nursing): Headache History Per: Patient History/Exam Limitations: no limitations Onset/Duration Of Symptoms: Days Current Symptoms Are (Timing): Still Present Severity: Moderate Pain Scale Rating Of: 4 Preceeding Symptoms: None Associated Symptoms: denies: Photophobia, Blurred Vision, Nausea, Vomiting, Extremity Weakness Recent travel outside of the [place]: No Past Medical History Reviewed: Historical Data, Nursing Documentation, Vital Signs Vital Signs: Last Vital Signs Temp 97.9 F 07/17/18 05:28 Pulse 76 07/17/18 05:28 Resp 14 07/17/18 05:28 BP 175/75 H 07/17/18 05:28 Pulse Ox 100 07/17/18 05:28 Primary Care Provider: Clinic,Med Surg - Medical History PMH: Diabetes, Gall Bladder Disease (cholecystectomy), HTN, Hypercholesterolemia, Hyperthyroidism, Hypothyroidism, Migraine, Osteoporosis (OSTEOPENIA) Denies: Colonic Polyps, Fractures, Chronic Kidney Disease, TIA Surgical History: Cholecystectomy - [facility] Procedures DX ULTRASOUND-HEAD/NECK (11/27/12) PERCUTAN NEEDLE BX OF THYROID GLAND (11/27/12) Family History: States: No Known Family Hx - Social History Hx Tobacco Use: No Hx Alcohol Use: No Hx Substance Use: No - Immunization History Hx Tetanus Toxoid Vaccination: No Hx Influenza Vaccination: No Hx Pneumococcal Vaccination: Yes Review Of Systems Constitutional: Negative for: Fever, Chills Cardiovascular: Negative for: Chest Pain, Palpitations, Orthopnea Respiratory: Negative for: Cough Gastrointestinal: Negative for: Nausea, Vomiting Musculoskeletal: Positive for: Neck Pain Neurological: Negative for: Weakness, Numbness Physical Exam - Physical Exam Appears: Non-toxic Skin: Warm, Dry Head: Normacephalic Oral Mucosa: Moist Neck: Decreased ROM (towards left), Trachea Midline, No Midline Cervical Tenderness, Paracervical Tenderness (Left), No Step Off Deformity, Supple Chest: Symmetrical, No Tenderness Cardiovascular: Rhythm Regular Respiratory: No Rales, No Rhonchi, No Wheezing Gastrointestinal/Abdominal: Soft, No Tenderness Extremity: Other (Moves all extremities) Neurological/Psych: Oriented x3, Other (No focal deficits) Gait: Steady ED Course And Treatment O2 Sat by Pulse Oximetry: 100 (Room air) Pulse Ox Interpretation: Normal Progress Note: Klonopin and lioresal administered. pt able to move neck more freely . discomfort improved. wants to go home Reevaluation Time: 06:32 Reassessment Condition: Improved Medical Decision Making Medical Decision Making: Upon provider reevaluation patient is feeling better, is medically stable, and requires no further treatment in the ED at this time. Patient will be discharged home with Rx for clonazepam and baclofen. Counseling was provided and all questions were answered regarding diagnosis and need for follow up with the referred clinic. There is agreement to discharge plan. Return if symptoms persist or worsen. Disposition Counseled Patient/Family Regarding: Studies Performed, Diagnosis, Need For Followup, Rx Given - Disposition Referrals: [facility] [Outside] [facility] [Outside] Disposition: HOME/ ROUTINE Disposition Time: 05:51 Condition: FAIR Additional Instructions: Please return if symptoms recur Prescriptions: Baclofen 5 mg PO TID #21 tablet Clonazepam 0.25 mg PO BID #14 odt Instructions: Torticollis (DC), Neck Stretches Forms: [facility] (Kazakh) Print Language: HUNGARIAN - Clinical Impression Clinical Impression: Torticollis - Scribe Statement The provider has reviewed the documentation as recorded by the Dennisibmary grace Cardenas All medical record entries made by the Dennisibmary grace were at my direction and personally dictated by me. I have reviewed the chart and agree that the record accurately reflects my personal performance of the history, physical exam, medical decision making, and the department course for this patient. I have also personally directed, reviewed, and agree with the discharge instructions and disposition.
[2018-07-17 06:31] VITALS: BP 158/61; PULSE 80; RESP 16; TEMP 98.3
[2018-07-17 06:35] VITALS: O2SAT 100
== END 2018-07-17 06:41 | disposition home or self-care (01) ==
LOC: C.ER 05:21
DX: M43.6 Torticollis (principal)